=== PATIENT | male | born 2000 | race African-American/Black ===

== ENCOUNTER 2020-04-04 11:44 | Inpatient (IN) ==
[2020-04-04] MEDS: SODIUM CHLORIDE 0.9% 500 ML IV SCH ×5 (12:15→21:46)
[2020-04-04] MEDS ORDERED: ACETAMINOPHEN 65 ML IV ONE (12:18)
--- NOTE | 2020-04-04 12:31 | Emergency Department Note ---
Impression & Plan Hypotension, SOB (shortness of breath), Suicide attempt, Overdose, Cyanosis, Methemoglobinemia, Tachycardia ED Provider Note NAME: KYLE ROCA AGE: 19 SEX: M : 2000 ARRIVES VIA: Ambulance INFORMANT: [Patient] ED PROVIDER(S): [Matteo Talbert MD] CHIEF COMPLAINT: Intentional overdose HISTORY OF PRESENT ILLNESS: The patient is a 19-year-old male who presents to the ER by EMS after overdosing on sodium nitrate. Patient ingested this liquid about 1 hour ago. This was a suicide attempt. He had googled a way to kill himself online and had ordered this material online. The patient states the bottle had 115 g of powder. He thinks based on how he mixed things up that he drank around 10 to 12 g. He also took 2 Zofran tablets. The patient has a mild headache and some mild stomach upset. He has not vomited. He has no chest pain, he is not short of breath. He is thinking clearly. Patient states that he called his parents after this. He was saying goodbye to them. They convinced him to stop what he was doing and call the ambulance. The patient is upset about his grades. He states that he was a straight A student until things turned to online classes. Now he failed his classes and felt that the only way out was a suicide. Patient has been depressed lately because of his grades, he also feels alone and isolated because of the coronavirus pandemic. Patient is otherwise healthy, no heart or lung disease. He has no previous attempts at suicide. REVIEW OF SYSTEMS: See HPI for pertinent positives and negatives. A total of ten systems were reviewed and were otherwise negative. PMHx/PSHx: See Below SOCIAL HISTORY: See Below. PHYSICAL EXAM: GENERAL: Patient is in no acute distress. HEENT: No acute trauma, normocephalic atraumatic, mucous membranes dry, no nasal congestion, no scleral icterus. NECK: No stridor, no adenopathy, no meningismus, trachea is midline. LUNGS: Clear to auscultation bilaterally, no wheeze, no rhonchi, breath sounds equal. HEART: Mildly tachycardic, regular rhythm, no murmurs ABDOMEN: Soft, nontender, bowel sounds positive, no hernias, no peritonitis. EXTREMITIES: No cyanosis or edema, full range of motion of all the joints without pain or difficulty, no signs for acute trauma. NEUROLOGIC: Oriented x 3, no acute motor or sensory deficits, no focal weakness. SKIN: No rash, no jaundice, no diaphoresis. Psych: Cooperative, admits to an attempt at suicide. DIFFERENTIAL DIAGNOSIS: Overdose, toxicologic, infection, hypoglycemia, electrolyte abnormalities, cardiac sources, intracerebral event, neurologic, trauma, as well as other pathologies. EMERGENCY DEPARTMENT COURSE/PROCEDURES: ECG: Indication was overdose. The EKG shows a sinus tachycardia with a rate of 136. The QTc is 442. There is no ST elevation. No PVCs. Continuous Cardiac Monitoring: An order was placed for continuous cardiac monit oring. The monitor shows a rate of 115 with sinus tachycardia. Critical Care Note: I have personally spent greater than 62 minutes of critical care time in the direct management of this patient. This includes bedside care, interpretation of diagnostic studies, and testing, discussion with consultants, patient, and family members, and other required patient management activities. This 62 minutes is in excess of all separately billable procedures. MEDICAL DECISION MAKING: There is no leukocytosis or concerning anemia. ABG does not show any acidosis or hypoxia. Methemoglobin value was greater than 10%, elevated. No significant electrolyte abnormality or kidney failure. No concerning liver enzyme elevation. EKG showed a sinus tachycardia, no acute ischemia, no QT prolongation. Aspirin, Tylenol and alcohol levels were undetectable. Urine tox was negative. The patient presents after ingesting sodium nitrate. This was a suicide attempt. The patient was aggressively managed. Poison control was consulted. Patient presented mildly hypotensive and did demonstrate some orthostasis, he became pale and almost passed out when he stood to provide a urine sample. He received a total of 1 L of IV saline for hydration. During his ER stay, he became more tachycardic and appeared cyanotic. He complained of shortness of b reath. Patient received a dose of methylene blue IV as per the poison center's recommendations. This medication improved his tachycardia, his cyanosis disappeared and he felt better. Patient received a dose of IV Tylenol for pain control. The patient was in need of a hospital stay. The ICU attending was consulted and he did accept the patient. I spoke to case management, I talked to the patient about his findings, the on-call hospitalist was consulted. The patient will need to be seen by psychiatry but this can occur once he is medically clear, hopefully tomorrow. He is currently in serious but improved condition. Past Med/Surg History Medical History No significant past medical history Social History Preferred Language: Cypriot Communication Ability: Effective Beliefs That Will Affect Care: None Current Living Situation: Alone Feels Safe at Home: Yes Smoking Status: Never smoker Hx Substance Use: No Allergies Allergies Allergy/AdvReac Type Severity Reaction Status Date / Time No Known Allergies Allergy Unverified 04/04/20 13:06 Home Meds Home Medications Medication Instructions Recorded Confirmed No Known Home Medications 04/04/20 04/04/20 Results & Data (ED) Vital Signs Vital Signs - 24 hr 04/04/20 11:45 04/04/20 12:07 04/04/20 12:38 Temperature Source Oral Pulse Rate 116 H 136 H Pulse Rate [Left Finger] Respiratory Rate 20 Respiratory Effort / Characteristics Non-Labored Non-Labored Respiratory Depth Normal Normal Blood Pressure 90/41 L Blood Pressure [Left Arm] Blood Pressure Mean 57 Blood Pressure Mean [Left Arm] Pulse Oximetry 93 100 Oxygen Delivery Method Room Air Room Air Sepsis Recent Fever Within 48 Hours No Sepsis Action Taken by Nursing No Action Required 04/04/20 12:51 04/04/20 13:59 Temperature Source Pulse Rate Pulse Rate [Left Finger] 132 H 121 H Respiratory Rate 16 12 Respiratory Effort / Characteristics Non-Labored Respiratory Depth Normal Blood Pressure Blood Pressure [Left Arm] 106/63 107/87 Blood Pressure Mean Blood Pressure Mean [Left Arm] 77 93 Pulse Oximetry 100 100 Oxygen Delivery Method Room Air Sepsis Recent Fever Within 48 Hours Sepsis Action Taken by Skilled Nursing Medications Current Medication List: was personally reviewed by me Laboratory Data Attestation: I reviewed the patient's lab results. Result diagrams: 04/04/20 12:29 04/04/20 12:29 Lab Results 04/04/20 04/04/20 04/04/20 Range/Units 12:29 12:29 12:29 WBC (4.8-10.8) K/uL RBC (4.7-6.1) M/uL Hgb (14.0-18.0) g/dL Hct (42-52) % MCV (80-100) fL MCH (25-34) pg MCHC (32-36) g/dL Plt Count (130-400) K/uL Neutrophils % (Manual) % Lymphocytes % (Manual) % Monocytes % (Manual) % Basophils % (Manual) % Neutrophils # (Manual) (1.4-6.5) K/uL Total Absolute Neuts (1.4-6.5) K/uL Lymphocytes # (Manual) (1.2-3.4) K/uL Total Abs Lymphocytes (1.2-3.4) K/uL Monocytes # (Manual) (0.11-0.59) K/uL Basophils # (Manual) (0-0.2) K/uL ABG pH (7.35-7.45) ABG pCO2 (35-46) mmHg ABG pO2 (80-95) mmHg ABG HCO3 (19-24) mmol/L ABG O2 Saturation (90-95) % ABG Base Excess (-9-1.8) mEq/L Junior Test (Pos) Methemoglobin (0.0-1.5) % Barometric Pressure mm/Hg Oxygen Given Sodium 143 (136-145) mmol/L Potassium 3.4 L (3.5-5.1) mmol/L Chloride 111 H (98-107) mmol/L Carbon Dioxide 25 (21-32) mmol/L Anion Gap 7.0 (3-11) BUN 9 (7-18) mg/dl Creatinine 1.16 (0.6-1.4) mg/dl Est Cr Clr Drug Dosing Not Reportable Est GFR ( Amer) 104.5 Est GFR (Non-Af Amer) 90.2 BUN/Creatinine Ratio 7.5 L (10-20) Glucose 117 H (70-99) mg/dl Calcium 8.6 (8.5-10.1) mg/dl Magnesium 2.2 (1.8-2.4) mg/dl Total Bilirubin 0.8 (0.2-1) mg/dl AST 13 L (15-37) U/L ALT 15 (12-78) U/L Alkaline Phosphatase 69 (45-117) U/L Total Protein 6.9 (6.4-8.2) gm/dl Albumin 3.9 (3.4-5.0) gm/dl Globulin 3.0 (2.5-4.0) gm/dl Albumin/Globulin Ratio 1.3 (0.9-2) Salicylates < 1.7 L (2.8-20) mg/dl Acetaminophen < 2 L (10-30) ug/ml Ethyl Alcohol mg/dL < 3.0 (0-3) mg/dl 04/04/20 04/04/20 04/04/20 Range/Units 12:29 12:29 12:48 WBC 7.42 (4.8-10.8) K/uL RBC 4.77 (4.7-6.1) M/uL Hgb 14.6 (14.0-18.0) g/dL Hct 43.7 (42-52) % MCV 91.6 (80-100) fL MCH 30.6 (25-34) pg MCHC 33.4 (32-36) g/dL Plt Count 278 (130-400) K/uL Neutrophils % (Manual) 37.6 % Lymphocytes % (Manual) 46.8 % Monocytes % (Manual) 14.7 % Basophils % (Manual) 0.9 % Neutrophils # (Manual) 2.79 (1.4-6.5) K/uL Total Absolute Neuts 2.79 (1.4-6.5) K/uL Lymphocytes # (Manual) 3.47 H (1.2-3.4) K/uL Total Abs Lymphocytes 3.47 H (1.2-3.4) K/uL Monocytes # (Manual) 1.09 H (0.11-0.59) K/uL Basophils # (Manual) 0.07 (0-0.2) K/uL ABG pH 7.46 H (7.35-7.45) ABG pCO2 33 L (35-46) mmHg ABG pO2 132 H (80-95) mmHg ABG HCO3 23 (19-24) mmol/L ABG O2 Saturation 91.8 (90-95) % ABG Base Excess 0.1 (-9-1.8) mEq/L Junior Test Pos (Pos) Methemoglobin > 10.0 H (0.0-1.5) % Barometric Pressure 738.7 mm/Hg Oxygen Given Room Air Sodium (136-145) mmol/L Potassium (3.5-5.1) mmol/L Chloride (98-107) mmol/L Carbon Dioxide (21-32) mmol/L Anion Gap (3-11) BUN (7-18) mg/dl Creatinine (0.6-1.4) mg/dl Est Cr Clr Drug Dosing Est GFR ( Amer) Est GFR (Non-Af Amer) BUN/Creatinine Ratio (10-20) Glucose (70-99) mg/dl Calcium (8.5-10.1) mg/dl Magnesium (1.8-2.4) mg/dl Total Bilirubin (0.2-1) mg/dl AST (15-37) U/L ALT (12-78) U/L Alkaline Phosphatase (45-117) U/L Total Protein (6.4-8.2) gm/dl Albumin (3.4-5.0) gm/dl Globulin (2.5-4.0) gm/dl Albumin/Globulin Ratio (0.9-2) Salicylates (2.8-20) mg/dl Acetaminophen (10-30) ug/ml Ethyl Alcohol mg/dL (0-3) mg/dl Administered Medications Discontinued Medications Sodium Chloride (Nss) 500 mls @ 999 mls/hr IV .Q31M LINDSAY Stop: 04/14/20 22:30 Last Admin: 04/04/20 16:21 Dose: Not Given Documented by: [id number] Admin: 04/04/20 16:17 Dose: Not Given Documented by: [id number] Infusion: 04/04/20 12:45 Dose: 0 mls/hr Documented by: [id number] Admin: 04/04/20 12:15 Dose: 999 mls/hr Documented by: [id number] Acetaminophen ([facility]) 65 mls @ 200 mls/hr IV NOW ONE; Protocol Stop: 04/04/20 12:37 Last Infusion: 04/04/20 13:15 Dose: 0 mls/hr Documented by: [id number] Admin: 04/04/20 12:57 Dose: 200 mls/hr Documented by: [id number] Methylene Blue 8.4 ml/ (Dextrose) 58.4 mls @ 233.6 mls/hr IV NOW STA Stop: 04/04/20 14:00 Last Infusion: 04/04/20 14:21 Dose: 0 mls/hr Documented by: [id number] Admin: 04/04/20 13:59 Dose: 233.6 mls/hr Documented by: [id number] Sodium Chloride (Nss 1000ml) 500 mls @ 999 mls/hr IV .Q31M ONE Stop: 04/04/20 14:14 Last Infusion: 04/04/20 15:46 Dose: 0 mls/hr Documented by: [id number] Admin: 04/04/20 14:19 Dose: 999 mls/hr Documented by: [id number] Potassium Chloride (K Antonio / Wtr) 10 meq in 100 mls @ 100 mls/hr IV ONE ONE Stop: 04/04/20 16:09 Last Admin: 04/04/20 16:28 Dose: 100 mls/hr Documented by: [id number] Lactated Ringer's (Lr) 1,000 mls @ 999 mls/hr IV .Q1H1M ONE Stop: 04/04/20 17:21 Last Infusion: 04/04/20 16:34 Dose: 0 mls/hr Documented by: [id number] Admin: 04/04/20 16:28 Dose: 999 mls/hr Documented by: [id number] Blood Pressure Blood Pressure Findings: Low blood pressure Blood Pressure Disposition: further management by hospitalist Discharge Plan Visit Data *Final* Discharge Date/Time: 04/04/20 14:30 Chief Complaint: Overdose (Intentional) ED Provider: Matteo Talbert Discharge Problem: Hypotension, SOB (shortness of breath), Suicide attempt, Overdose, Cyanosis, Methemoglobinemia, Tachycardia Patient Disposition: Admitted As Inpatient Condition: Serious Discharge Instructions Interventions: ED Discharge Assessment Last Done: 04/04/20 14:30 Discharge Problem: Hypotension Qualifiers: Hypotension type: unspecified hypotension type Qualified Code(s): I95.9 - Hypotension, unspecified Overdose Qualifiers: Encounter type: initial encounter Injury intent: intentional self-harm Qualified Code(s): T50.902A - Poisoning by unspecified drugs, medicaments and biological substances, intentional self-harm, initial encounter
[2020-04-04 13:06] LABS: Alanine Aminotransferase 15 U/L (12-78); Albumin Level 3.9 gm/dl (3.4-5.0); Aspartate Aminotransferase 13 U/L (15-37); BUN Creatinine Ratio 7.5 (10-20); Blood Urea Nitrogen 9 mg/dl (7-18); Calcium 8.6 mg/dl (8.5-10.1); Carbon Dioxide 25 mmol/L (21-32); Chloride 111 mmol/L (98-107); Est GFR (African American) 104.5; Est GFR (Non-African American) 90.2; Glucose 117 mg/dl (70-99); Magnesium 2.2 mg/dl (1.8-2.4); Potassium 3.4 mmol/L (3.5-5.1); Sodium 143 mmol/L (136-145)
[2020-04-04 13:08] LABS: Allen Test Pos (Pos); Base Excess ABG 0.1 mEq/L (-9-1.8); HCO3 ABG 23 mmol/L (19-24); Oxygen Saturation ABG 91.8 % (90-95); PCO2 ABG 33 mmHg (35-46); PO2 ABG 132 mmHg (80-95); pH ABG 7.46 (7.35-7.45)
[2020-04-04 13:09] LABS: Albumin Globulin Ratio 1.3 (0.9-2); Alkaline Phosphatase 69 U/L (45-117); Bilirubin,Total 0.8 mg/dl (0.2-1); Total Protein 6.9 gm/dl (6.4-8.2)
[2020-04-04 13:16] LABS: Acetaminophen < 2 ug/ml (10-30); Salicylate < 1.7 mg/dl (2.8-20)
[2020-04-04 13:30] LABS: Amphetamines+Metham, Urine Neg (Neg); Barbiturates, Urine Neg (Neg); Benzodiazepine, Urine Neg (Neg); Cocaine, Urine Neg (Neg); MDMA (Ecstacy), Urine Neg (Neg); Methadone, Urine Neg (Neg); Opiate, Urine Neg (Neg); Phencyclidine, Urine Neg (Neg)
[2020-04-04] MEDS ORDERED: SODIUM CHLORIDE 0.9% 1000ML 500 ML IV ONE (13:44)
[2020-04-04 13:45] LABS: Hematocrit (blood only) 43.7 % (42-52); Hemoglobin 14.6 g/dL (14.0-18.0); Mean Corpuscular Hemoglobin 30.6 pg (25-34); Mean Corpuscular Hgb Conc 33.4 g/dL (32-36); Mean Corpuscular Volume 91.6 fL (80-100); Platelet Count 278 K/uL (130-400); Red Blood Count 4.77 M/uL (4.7-6.1); White Blood Count 7.42 K/uL (4.8-10.8)
[2020-04-04 13:46] LABS: ALC (manual) 3.47 K/uL (1.2-3.4); ANC (manual) 2.79 K/uL (1.4-6.5); Basophils # (manual) 0.07 K/uL (0-0.2); Basophils % (manual) 0.9 %; Lymphocytes # (manual) 3.47 K/uL (1.2-3.4); Lymphocytes % (manual) 46.8 %; Monocytes # (manual) 1.09 K/uL (0.11-0.59); Monocytes % (manual) 14.7 %; Neutrophils # (manual) 2.79 K/uL (1.4-6.5); Neutrophils % (manual) 37.6 %
[2020-04-04] MEDS ORDERED: METHYLENE BLUE IV STA (13:46)
[2020-04-04] MEDS ORDERED: DEXTROSE 5% IV STA (13:46)
--- NOTE | 2020-04-04 14:39 | History & Physical Report ---
Date of Service April 04, 2020 Assessment & Plan (1) Suicide attempt: Admit ICU ED physician discussed patient's case with ICU physician Dose of methylene blue given in ED per poison control recommendation - can have another dose in 1 hour if he needs it but at present he is responding well to treatment Continue Fluids Patient care per editor newspaper (2) Hypokalemia: Will replace with 10 mEq IV potassium History of Present Illness Mr. Harmon presents today with intentional overdose of sodium nitrate. He ingested this liquid about 1 hour [employer] in an intentional suicide attempt. Per ED physician, he googled a way to kill himself online and had ordered this material online. The patient states the bottle had 115 g of powder. He thinks based on how he mixed things up that he drank around 10 to 12 g. He also took 2 Zofran tablets. He called his parents in [facility] and they convinced him to come to the ED. He reports headache and stomach upset with epigastric discomfort. He denies aches, chills, sob, chest pain, n/v/d, dysuria or hesitancy or musculoskeletal pain. He reports he failed all of his classes and that is what caused him to attempt to kill himself but he now regrets it and wants to live. Per the ED physician, patient was becoming acutely cyanotic. He was given methylene blue as instructed by poison control with rapid improvement. At the time of my assessment his was mildly tachycardic and otherwise vital signs were stable. No significant medical history No significant family medical history Lives alone, never smoker, no alcohol, no elicit substances, student Primary Care Provider: NO PCP Allergies Allergy/AdvReac Type Severity Reaction Status Date / Time No Known Allergies Allergy Unverified 04/04/20 13:06 Home Medications Home Medications Medication Instructions Recorded Confirmed Type No Known Home Medications 04/04/20 04/04/20 History Past Med/Surg History Social History Feels Safe at Home: Yes Smoking Status: Never smoker Physical Exam Physical Exam: General: no distress Eyes: normal inspection, PERLL Respiratory: chest non tender, clear to auscultation, normal breath sounds, no respiratory distress, no accessory muscle use Cardiac: regular rate and rhythm, no rub or gallop, no murmur, no edema, no jvd GI/: active bowel sounds, no abd pain or tenderness, soft, non distended Extremities: normal range of motion, normal strength, non tender Neuro/Psych: alert and oriented x 3, normal mood and affect Skin: normal color, dry Results & Data Results & Data ([facility]) Vital Signs (Past 12 Hours) Vital Signs Pulse Pulse Resp BP BP Pulse Ox 04/04/20 14:30 110 H 16 101/56 L 100 04/04/20 14:20 100 04/04/20 14:19 107 H 16 93/49 L 100 04/04/20 13:59 121 H 12 107/87 100 04/04/20 12:51 132 H 16 106/63 100 04/04/20 12:38 136 H 100 04/04/20 11:45 116 H 20 90/41 L 93 Code Status & VTE Plan Code Status full VTE Prophylaxis Plan VTE Prophylaxis will be ordered: Yes Supervising Physician Co-Signing Physician Notes I supervised Hilda Hart NP on this patient's care. I examined the patient today independently of her. I discussed the plan of care with her with the plan being as written in her note except for any following changes/exceptions: None. Presently in less distress after receiving methylene blue. Will monitor closely in the ICU and give additional dose if needed. PG Care Time/CCT Total # of Minutes Spent Total Time Spent with Patient: Total time spent is greater than 50% in coordination of care (as documented) at patient's floor/unit and/or counseling patient: Coding Level of Care Code 81788 Initial Inpt Care Lvl 2 Diagnoses Suicide attempt T14.91XA Hypokalemia E87.6
[2020-04-04] MEDS ORDERED: POTASSIUM CHLORIDE / WTR 10 MEQ/100 ML PLCT IV ONE (15:10)
[2020-04-04] MEDS ORDERED: ICU PROTOCOL FOR HYPERGLYCEMIA PRN (15:10)
--- NOTE | 2020-04-04 16:00 | Critical Care Consultation ---
Date of Consultation April 04, 2020 Assessment & Plan (1) Methemoglobinemia: Chest x-ray personally reviewed: No infiltrate, costophrenic cardiophrenic angles are clean bilaterally. --Hemoglobinemia with suicide attempt The methemoglobin level was greater than 10% on ABG Patient was given methylene blue 1 dose in the ED at 2 PM Toxicology was consulted. Recommendation is to repeat ABG to look at the level at 8 PM which is 6 hours post initial ABG and if it is still elevated then give a repeat dose of methylene blue Give bolus 1 L of LR. Follow-up toxicology recommendations UDS is negative, salicylate negative, Tylenol negative, alcohol negative Follow-up serum osmolality and urine osmolality. --Hypokalemia Being replaced --Suicidal ideation Continue with 1 is to 1 Psychiatric evaluation Diet: Regular DVT: IPC's I have personally spent 48 minutes of critical care time in the direct management of this patient. This is a life/limb threatening event. This includes time spent evaluating patient, direct bedside care, chart review, placing orders, interpretation of diagnostic studies, discussion with consultants, patient, and family members, as well as other required patient management activities. This time is exclusive of all separately billable procedures, and teaching time and separate from and in addition to any other critical care service time. Please note the above document was generated using voice recognition software. It may contain grammatical, syntax or spelling errors. (2) Suicide attempt: (3) Suicide attempt: History of Present Illness Attending Physician: Flash Mahajan MD History of Present Illness 19-year-old [place]ian male with no significant past medical history presented to the ER with intentional overdose of sodium nitrate. Patient took approximately 10-12 g along with 2 Zofran tablets. He was feeling depressed as he was not getting good grades this term, previously patient used to get 8 years allowed. He was also feeling lonely because of the friend admixed and he has to stay home all the time and all his friends were at their respective places. In the ER patient saturation was good but his ABG showed methhemoglobin level greater than 10%. Patient was tachycardic and mildly hypotensive which respon ded to fluid At the time of examination in the ICU patient denied any complaints. Denies any nausea or vomiting. Denied any dizziness, no chest pain, no blurry vision. Denied any abdominal pain. No dysuria, no diarrhea. Patient denies any suicidal ideation right now. No fever or chills. Patient denies any fight with anybody. He is feeling sorry to have taken the staff. Social history: Denies any illicit drug use, no alcohol use, non-smoker. Is a student studying [employer]. Allergies Allergy/AdvReac Type Severity Reaction Status Date / Time No Known Allergies Allergy Unverified 04/04/20 13:06 Home Medications Home Medications Medication Instructions Recorded Confirmed Type No Known Home Medications 04/04/20 04/04/20 History Patient History Social History Preferred Language: Uzbek Communication Ability: Effective Beliefs That Will Affect Care: None Current Living Situation: Alone Feels Safe at Home: Yes Smoking Status: Never smoker Hx Substance Use: No Review of Systems Review of Systems: All systems reviewed & are unremarkable except as noted in HPI & below Physical Exam Physical Exam: Constitutional: No acute distress, thin appearing HEENT: EOMI, PERRLA, dry mucosa Respiratory system: Good air entry bilaterally, no wheeze, no rhonchi, no crackles CVS: S1-S2 positive, no murmurs or gallops, tachycardia Abdomen: Soft, nontender, nondistended, positive bowel sounds x4 Extremities: +2 pulses bilaterally radialis/ dorsalis pedis, no cyanosis, no edema Neuro: Awake alert oriented x3 Psych: Normal mood and affect G/U: No Gomez Skin: no rashes, warm and dry Lymphatic: no cervical or axillary lymphadenopathy Results & Data Results & Data ([facility]) Vital Signs (Past 12 Hours) Vital Signs Pulse Pulse Resp BP BP Pulse Ox 04/04/20 14:30 110 H 16 101/56 L 100 04/04/20 14:20 100 04/04/20 14:19 107 H 16 93/49 L 100 04/04/20 13:59 121 H 12 107/87 100 04/04/20 12:51 132 H 16 106/63 100 04/04/20 12:38 136 H 100 04/04/20 11:45 116 H 20 90/41 L 93 04/04/20 12:29 04/04/20 12:29 Coding Level of Care Code New Pt Critical Care 1st 30-74 mins Patient Type New Diagnoses Methemoglobinemia D74.9 Suicide attempt T14.91XA Suicide attempt T14.91XA Time Spent (min) 48
[2020-04-04] MEDS ORDERED: LACTATED RINGER'S 1,000 ML IV ONE (16:21)
--- NOTE | 2020-04-04 16:23 | XRay Report ---
XR chest 1V portable CLINICAL HISTORY: Shortness of breath. COMPARISON STUDY: No previous studies for comparison. FINDINGS: Lung volumes are normal. Lungs are clear. There is no pneumothorax or pleural effusion. Car diac size is normal. Mediastinal contours are normal. There is no evidence for pulmonary edema. Patie nt is mildly rotated. IMPRESSION: No acute cardiopulmonary findings. ACT 112: Negative or not required by law. Electronically signed by: Osmani Lopez M.D. 04/04/2020 4:22 PM
[2020-04-04] MEDS ORDERED: POTASSIUM CHLORIDE PWD 20 MEQ PACK PO ONE (19:45)
[2020-04-04 20:36] LABS: Base Excess ABG 0.2 mEq/L (-9-1.8); HCO3 ABG 24 mmol/L (19-24); Oxygen Saturation ABG 97.6 % (90-95); PCO2 ABG 35 mmHg (35-46); PO2 ABG 99 mmHg (80-95); pH ABG 7.45 (7.35-7.45)
[2020-04-04 20:51] LABS: Allen Test POS (Pos)
[2020-04-04] MEDS: SODIUM CHLORIDE 0.9% 1000ML 1,000 ML IV SCH (23:39)
[2020-04-05 02:47] LABS: HCO3 ABG 24 mmol/L (19-24); PCO2 ABG 37 mmHg (35-46); PO2 ABG 139 mmHg (80-95); pH ABG 7.43 (7.35-7.45)
[2020-04-05 02:48] LABS: Allen Test POS (Pos)
[2020-04-05 04:35] LABS: Basophils # (auto) 0.01 K/uL (0-0.2); Basophils % (auto) 0.1 %; Eosinophils # (auto) 0.01 K/uL (0-0.5); Eosinophils % (auto) 0.1 %; Hematocrit (blood only) 42.2 % (42-52); Hemoglobin 14.3 g/dL (14.0-18.0); Immature Granulocytes # (auto) 0.01 K/uL (0.00-0.02); Immature Granulocytes % (auto) 0.1 %; Lymphocytes # (auto) 2.19 K/uL (1.2-3.4); Lymphocytes % (auto) 24.1 %; Mean Corpuscular Hemoglobin 30.7 pg (25-34); Mean Corpuscular Hgb Conc 33.9 g/dL (32-36); Mean Corpuscular Volume 90.6 fL (80-100); Mean Platelet Volume 10.3 fL (7.4-10.4); Monocytes # (auto) 0.51 K/uL (0.11-0.59); Monocytes % (auto) 5.6 %; Neutrophils # (auto) 6.34 K/uL (1.4-6.5); Platelet Count 251 K/uL (130-400); RDW Coefficient of Variation 13.7 % (11.5-14.5); RDW Standard Deviation 45.5 fL (36.4-46.3); Red Blood Count 4.66 M/uL (4.7-6.1); White Blood Count 9.07 K/uL (4.8-10.8)
[2020-04-05] MEDS ORDERED: ACETAMINOPHEN 325 MG TAB PO PRN (04:45)
[2020-04-05 05:19] LABS: Albumin Level 3.9 gm/dl (3.4-5.0); BUN Creatinine Ratio 5.2 (10-20); Bilirubin Direct 0.2 mg/dl (0-0.2); Bilirubin,Total 0.8 mg/dl (0.2-1); Blood Urea Nitrogen 4 mg/dl (7-18); Calcium 8.3 mg/dl (8.5-10.1); Carbon Dioxide 25 mmol/L (21-32); Chloride 109 mmol/L (98-107); Est GFR (African American) > 150.0; Est GFR (Non-African American) 134.3; Glucose 94 mg/dl (70-99); Sodium 142 mmol/L (136-145)
[2020-04-05] MEDS: SODIUM CHLORIDE 0.9% 1000ML 1,000 ML IV SCH (06:09)
--- NOTE | 2020-04-05 06:11 | Electrocardiogram Report ---
Test Reason : Blood Pressure : / mmHG Vent. Rate : 136 BPM Atrial Rate : 136 BPM P-R Int : 126 ms QRS Dur : 076 ms QT Int : 294 ms P-R-T Axes : 075 095 070 degrees QTc Int : 442 ms Sinus tachycardia Possible Left atrial enlargement Incomplete right bundle branch block Rightward axis Borderline ECG No previous ECGs available Confirmed by John Back [id number] on 04/05/2020 6:10:35 AM Referred By: REFERRED SELF Confirmed By:John Back
--- NOTE | 2020-04-05 08:05 | Critical Care Progress Note ---
Date of Service April 05, 2020 Assessment & Plan (1) Methemoglobinemia: Chest x-ray personally reviewed: No infiltrate, costophrenic cardiophrenic angles are clean bilaterally. --Methemoglobinemia with suicide attempt The methemoglobin level was greater than 10% on ABG S/p 1 dose of methylene blue yesterday at 2 PM in the ED. Patient did not require a repeat dose of methylene blue. His methemoglobin level was trending down. Today it travel was 0.3% Lactic acidosis improved. UDS is negative, salicylate negative, Tylenol negative, alcohol negative No osmolar gap. --Suicidal ideation Continue with 1 is to 1 Psychiatric evaluation Diet: Regular DVT: IPC's Patient is hemodynamically stable to be sent to a [facility] tele[facility]. I have personally spent 35 minutes of critical care time in the direct management of this patient. This is a life/limb threatening event. This includes time spent evaluating patient, direct bedside care, chart review, placing orders, interpretation of diagnostic studies, discussion with consultants, patient, and family members, as well as other required patient management activities. This time is exclusive of all separately billable procedures, and teaching time and separate from and in addition to any other critical care service time. Please note the above document was generated using voice recognition software. It may contain grammatical, syntax or spelling errors. (2) Suicide attempt: Admission and Anticipated Discharge Date Admission Date: April 04, 2020 Subjective Patient seen and examined at bedside. No acute distress, no adverse events overnight. Denies any chest pain, no shortness of breath, no headache, no nausea, no vomiting. No suicidal ideation. Repeat ABG showed methemoglobin level less than 0.3% in the morning today. Patient tolerating diet. Review of Systems Review of Systems: All systems reviewed & are unremarkable except as noted in HPI & below Physical Exam Physical Exam: Constitutional: No acute distress, thin appearing HEENT: EOMI, PERRLA Respiratory system: Good air entry bilaterally, no wheeze, no rhonchi, no crackles CVS: S1-S2 positive, no murmurs or gallops, tachycardia Abdomen: Soft, nontender, nondistended, positive bowel sounds x4 Extremities: +2 pulses bilaterally radialis/ dorsalis pedis, no cyanosis, no edema Neuro: Awake alert oriented x3 Psych: Normal mood and affect G/U: No Gomez Skin: no rashes, warm and dry Lymphatic: no cervical or axillary lymphadenopathy Results & Data Results & Data ([facility]) Vital Signs (Past 12 Hours) Vital Signs Temp Pulse Pulse Resp BP BP Pulse Ox 04/05/20 07:00 87 17 117/67 100 04/05/20 06:56 81 15 117/67 100 04/05/20 06:00 75 14 100 04/05/20 05:42 79 13 04/05/20 05:41 79 15 122/66 100 04/05/20 05:30 89 15 100 04/05/20 05:00 85 17 100 04/05/20 04:41 92 H 15 115/68 100 04/05/20 04:30 81 17 04/05/20 04:22 36.9 C 04/05/20 04:00 87 14 100 04/05/20 03:41 87 21 123/75 100 04/05/20 03:30 109 H 19 04/05/20 03:00 99 H 15 04/05/20 02:41 94 H 10 L 123/77 100 04/05/20 02:30 104 H 18 100 04/05/20 02:00 93 H 15 04/05/20 01:42 105 H 15 119/75 04/05/20 01:30 99 H 13 100 04/05/20 01:00 114 H 13 100 04/05/20 00:41 91 H 15 119/75 100 04/05/20 00:30 109 H 18 100 04/05/20 00:00 36.9 C 96 H 16 100 04/04/20 23:41 119 H 15 115/79 100 04/04/20 23:30 81 16 100 04/04/20 23:00 127 H 17 100 04/05/20 04:21 04/05/20 04:21 Coding Level of Care Code Critical Care 1st 30-74 mins Diagnoses Methemoglobinemia D74.9 Suicide attempt T14.91XA Time Spent (min) 35
--- NOTE | 2020-04-05 10:09 | Hospitalist Progress Note ---
Date of Service April 05, 2020 Assessment & Plan (1) Suicide attempt: Consulted psychiatry, patient will need inpatient psychiatric care when medically cleared 1:1 in the room (2) Methemoglobinemia: Methemoglobin greater than 10% on ABG in ED, given methylene blue per poison control recommendations with rapid relief of cyanosis and improvement of symptoms Provide IVF with LR Urine tox was negative Consulted [facility], patient remains in the ICU (3) Hypokalemia: Replaced and resolved (4) Tachycardia: Intermittent, asymptomatic (5) DVT prophylaxis: SCDs Dispo: defer to [facility] on when patient is ready to leave ICU. Admission and Anticipated Discharge Date Admission Date: April 04, 2020 Subjective Mr. Harmon is feeling better today. He feels mostly back to his normal self. As I was standing and talking to him however he became tachycardic in the 140s which then trended back down. He denies any symptoms, reports he just feels fatiged. ROS Constitutional: no chills, aches, sweats or fever Respiratory: no sob,cough, sputum, or wheezing Cardiac: no chest pain, palpitations, edema, orthopnea or lightheadedness GI: no abdominal pain, nausea, vomiting, diarrhea or constipation : no dysuria or hesitancy Extremities: no joint pain or weakness Skin: no rash All other systems reviewed and negative Physical Exam Physical Exam: General: no distress Eyes: normal inspection, PERLL Respiratory: chest non tender, clear to auscultation, normal breath sounds, no respiratory distress, no accessory muscle use Cardiac: regular rate and rhythm, no rub or gallop, no murmur, no edema, no jvd GI/: active bowel sounds, no abd pain or tenderness, soft, non distended Extremities: normal range of motion, normal strength, non tender Neuro/Psych: alert and oriented x 3, flat affect Skin: normal color, dry Results & Data Results & Data ([facility]) Vital Signs (Past 12 Hours) Vital Signs Temp Pulse Pulse Resp BP BP Pulse Ox 04/05/20 08:00 84 04/05/20 07:00 87 17 117/67 100 04/05/20 06:56 81 15 117/67 100 04/05/20 06:00 75 14 100 04/05/20 05:42 79 13 100 04/05/20 05:41 79 15 122/66 100 04/05/20 05:30 89 15 100 04/05/20 05:00 85 17 100 04/05/20 04:41 92 H 15 115/68 100 04/05/20 04:30 81 17 100 04/05/20 04:22 36.9 C 04/05/20 04:00 87 14 100 04/05/20 03:41 87 21 123/75 04/05/20 03:30 109 H 19 04/05/20 03:00 99 H 15 100 04/05/20 02:41 94 H 10 L 123/77 04/05/20 02:30 104 H 18 100 04/05/20 02:00 93 H 15 100 04/05/20 01:42 105 H 15 119/75 04/05/20 01:30 99 H 13 100 04/05/20 01:00 114 H 13 100 04/05/20 00:41 91 H 15 119/75 100 04/05/20 00:30 109 H 18 100 04/05/20 00:00 36.9 C 96 H 16 100 04/04/20 23:41 119 H 15 115/79 100 04/04/20 23:30 81 16 100 04/04/20 23:00 127 H 17 100 PG Care Time/CCT Total # of Minutes Spent Total Time Spent with Patient: Total time spent is greater than 50% in coordination of care (as documented) at patient's floor/unit and/or counseling patient: Coding Level of Care Code 04795 Subseq Hosp Care Lvl 2 Diagnoses Suicide attempt T14.91XA Methemoglobinemia D74.9 Hypokalemia E87.6 Tachycardia R00.0 DVT prophylaxis Z29.9
--- NOTE | 2020-04-05 10:30 | Psychiatric Consultation ---
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 This occurred in the context of struggling over the past 2 semesters due to significant isolation and all of his courses moving to online coursework, with poor academic performance, and finding out last week he failed 3 of his classes. He had a premeditated, researched suicide plan that took several days to implement, and took a lethal dose of sodium nitrate after researching how to kill himself. He called an ambulance after contacting his parents in [place] to say goodbye, and now reports regretting his suicide attempt. He is anxious to be discharged from the hospital, but none of his risk factors have been mitigated, and he remains at risk for suicide if discharged without psychiatric treatment. I have reviewed my recommendations for inpatient psychiatric treatment when he is medically cleared, including the difference between a voluntary and involuntary hospitalization. The liaison nurse will visit with him today and take a brochure about our unit, and hopefully with more information and support, he will agreed to voluntary hospitalization. If he does not, he clearly meets criteria for involuntary commitment, and is currently on a 302 warrant. Please notify us when he is medically cleared (stable vital signs, eating and drinking well, ambulating and voiding independently). Thank you for the consult, please contact us with any further questions. Risk Factors Assessment Male: Yes : No Do You Have Access To A Gun?: No Health Problems: No Mental Health Diagnoses: No Substance Use Disorders: No Previous Attempt: No Previous Attempt; Highly Lethal: Yes Previous Attempt; Planned: Yes Family History of Suicide: No Previous Psychiatric Hospitalization: No Hopelessness: Yes Smoker: No Protective Factors Assessment Mu-Ism Beliefs: No : No Responsible for Young Children: No Employed: No Stable Relationships: Yes (Has friends, but no supports in the area currently.) Supportive Family: Yes Good Rapport with Provider: No Psych History Identifying Data 19-year-old male admitted to the ICU after a suicide attempt by sodium nitrate ingestion. Psychiatry is consulted for suicide attempt. Chief Complaint "So I'm feeling pretty good". History of Present Illness Patient presented to the ER yesterday after a suicide attempt by overdose on sodium nitrate. Police completed a warrant which reads "male called 911 after taking approximately 10 to 15 g /oz of sodium nitrate and Zofran 8 mg x 2 tablets. On scene male advised he had just failed 3 classes and took the sodium nitrate and Zofran in an attempt to kill himself." He denied a history of mental illness, but stated he had been depressed lately because he failed all of his classes, and felt suicide was the only way out. He researched how to kill himself and ordered sodium nitrate online. He stated a bottle he bought contained 115 g of powder, and estimated that he ingested 10 to 12 g about 1 hour prior to presentation. He also took 2 tabs of Zofran. He then called his parents in [place] to say goodbye to them, who convinced him to come to call an ambulance. He endorsed GI upset and headache, and was tachycardic in the ER. EKG showed QTC 442. ABG showed methemoglobin >10. Toxicology screen was negative, CMP notable for slightly low potassium 3.4, CBC was unremarkable. He was admitted to the ICU and received methylene blue, IV fluids and potassium repletion. The psychiatric liaison nurse met with him last evening, and he reported that he tried to end his life, had been feeling alone and isolated because of the COVID pandemic, and was upset when his grades came out 3 days ago, as he failed all of his classes. He says he was in a student prior to classes moving to online because of the pandemic. Many of his friends have returned to [place]. He stated that he had "learned his lesson" and no longer felt suicidal. He did endorse decreased interest over the past 2 months, which he attributed to the lockdown because of the pandemic. He endorsed low energy and poor concentration, but denied changes in appetite and sleep. On my assessment, he was seen in his ICU room where he is seated in bed. Inter view put on hold for several minutes while he took a call from his mother in [facility]. He states he has never struggled with mood or anxiety symptoms prior to the past couple of months, but has been struggling with isolation and poor academic performance over the past 2 months since the COVID pandemic lead to [employer] moving all classes online. 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 Over the past 2 months, he has become extremely socially isolated, as most of his friends left campus and returned home, and he remained here. He lives alone, and says the only people he has been talking to are his parents, 1- 2 times a week by phone. He has no local supports. He says he struggled to keep up with his course work with the online classes, fell behind, missed some deadlines, and was generating poor quality work. Last week, he got his grades for the semester, and failed 3 of his classes. He was very disappointed, and felt hopeless. He states he was told he could drop the classes, but then his parents would have to pay tuition for an additional semester, and they cannot afford it. He felt that suicide was the only option available to him, so researched ways to kill himself online, and purchased sodium nitrate online several days ago. He waited for it to be delivered, and then mixed up an amount that according to his research would be more than a lethal dose, and ingested it yesterday with intent to . He says he read that 10 g was a lethal dose, so he took 15 to 20 g. He then called his parents in [facility] to say hipolitodoc, and during that conversation regretted his actions, became fearful of dying, so called an ambulance and came to the hospital. He states it was a very scary experience, as he was having difficulty breathing, and that he has now "learned my lesson," and regrets the suicide attempt. He repeatedly states that he feels better now, and does not think that he needs inpatient treatment, "I learned my lesson, this is all over." He plans to stay at his apartment in [place], but is considering returning to 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 Although he says he has no supports locally, he does have some friends in [place]. Discussed my recommendation for inpatient psychiatric treatment once he is medically stable, including reasons for those recommendations (severity of suicide attempt, lack of medication of any of his risk factors, need to demonstrate a period of stability prior to discharge and to involve his supports in discharge and safety planning), goals of treatment, what to expect on the inpatient psych unit, what types of treatment are offered there, and where treatment would occur here if a bed is available). Also discussed the option to coordinate with the University and get more information about options for him moving forward. Reviewed in detail the difference between a voluntary and involuntary commitment, and answered multiple questions. He was very concerned that if he was hospitalized psychiatrically he would be "interrogated" by the police, or criminally charged in some way, and assured him this was not the case. Also answered multiple questions about what it would mean to be "labeled" with a mental illness, people's ability to access his healthcare records, and that even if he is involuntarily committed, that this is not on his "record" and is not a criminal issue. At the conclusion of this discussion, he remained unwilling for inpatient treatment, but did agree to consider it further, and was advised that we are available if questions arise. Past Psychiatric History Previous Psych History: Denies Outpatient Services: None Previous Psych Admissions: Denies Do You Have Access To A Gun?: No History of Previous Suicide Attempt: No Past Medication Trials: Denies Allergies Allergy/AdvReac Type Severity Reaction Status Date / Time No Known Allergies Allergy Unverified 04/04/20 13:06 Home Medications Home Medications Medication Instructions Recorded Confirmed Type No Known Home Medications 04/04/20 04/04/20 History Family History Brother with autism. No family history of suicide. Substance Abuse History Denies using recreational drugs, alcohol, and tobacco products. Personal History Living Arrangements Comments: From [facility], currently living in [place] to attend [employer] Highest Grade Completed: Some College Highest Grade Completed Comment: [employer] at [employer] majoring in engineering Employment Status: Student Marital Status: Single Beliefs That Will Affect Care: None History of Legal Problems: Denies Psychological Trauma History Comment: Denies a history of abuse Patient History Medical History No significant past medical history Social History Preferred Language: Korean Communication Ability: Effective Beliefs That Will Affect Care: None Current Living Situation: Alone Feels Safe at Home: Yes Smoking Status: Never smoker Hx Substance Use: No Physical Exam Psychiatric: Orientation: alert and cooperative Apperance: appeared stated age Thin [place] male, dressed in paper scrubs, seated in bed in [facility]. Hair is shaved short, with longer wispy pieces around his ear; mustache and goattee. Wearing glasses that are visibly smudged. Eye Contact: + fair eye contact Motor Behavior: no abnormal motor movements Speech: normal rate/rhythm/volume of speech Affect: + anxious affect and + constricted affect; + mood not co ngruent with affect "I feel good now." Thought Process: + perseveration (on wanting to leave, "I'm fine now.") Thought Content: + cognitive distortions (minimizing suicide attempt) Suicidal Thoughts: denies suicidal thoughts But admits to premeditated, researched suicide attempt yesterday Homicidal Thoughts: denies homicidal thoughts Hallucinations: no auditory hallucinations and no visual hallucinations Cognition: recent memory grossly intact, attention grossly intact and language grossly intact Estimated Intelligence: consistent with education level Insight: + impaired insight Judgement: + impaired judgement Vital Signs (Past 24 Hours): Last Vital Signs Temp 36.9 C 04/05/20 04:22 Pulse 84 04/05/20 08:00 Resp 17 04/05/20 07:00 BP 117/67 04/05/20 07:00 Pulse Ox 100 04/05/20 07:00 Review of Systems All systems reviewed & are unremarkable except as noted in HPI & below Tachycardic Results & Data (PSY) Medications Administered Acetaminophen (Tylenol) 325 mg PO Q4H PRN PRN Reason: Pain Stop: 05/05/20 04:44 Last Admin: 04/05/20 05:12 Dose: 325 mg Documented by: [id number] Coding Level of Care Code 42798 [facility] Intl Hosp Care Lvl 3 Diagnoses Suicide attempt T14.91XA
[2020-04-06 08:30] LABS: Basophils # (auto) 0.02 K/uL (0-0.2); Basophils % (auto) 0.2 %; Eosinophils # (auto) 0.14 K/uL (0-0.5); Eosinophils % (auto) 1.6 %; Hematocrit (blood only) 49.1 % (42-52); Hemoglobin 16.7 g/dL (14.0-18.0); Immature Granulocytes # (auto) 0.02 K/uL (0.00-0.02); Immature Granulocytes % (auto) 0.2 %; Lymphocytes # (auto) 3.43 K/uL (1.2-3.4); Lymphocytes % (auto) 38.6 %; Mean Corpuscular Volume 91.1 fL (80-100); Mean Platelet Volume 10.6 fL (7.4-10.4); Neutrophils # (auto) 4.47 K/uL (1.4-6.5); Neutrophils % (auto) 50.4 %; Platelet Count 269 K/uL (130-400); RDW Coefficient of Variation 13.9 % (11.5-14.5); RDW Standard Deviation 46.5 fL (36.4-46.3); Red Blood Count 5.39 M/uL (4.7-6.1); White Blood Count 8.88 K/uL (4.8-10.8)
[2020-04-06 09:04] LABS: BUN Creatinine Ratio 11.2 (10-20); Blood Urea Nitrogen 10 mg/dl (7-18); Calcium 9.4 mg/dl (8.5-10.1); Carbon Dioxide 28 mmol/L (21-32); Chloride 103 mmol/L (98-107); Est GFR (African American) 140.1; Est GFR (Non-African American) 120.9; Glucose 108 mg/dl (70-99); Potassium 3.8 mmol/L (3.5-5.1); Sodium 139 mmol/L (136-145)
--- NOTE | 2020-04-06 14:45 | Discharge Summary ---
Date of Service April 06, 2020 Admission HPI Per Admitting Provider Mr. Harmon presents today with intentional overdose of sodium nitrate. He ingested this liquid about 1 hour FLAMER AFTER LASTING in an intentional suicide attempt. Per ED physician, he googled a way to kill himself online and had ordered this material online. The patient states the bottle had 115 g of powder. He thinks based on how he mixed things up that he drank around 10 to 12 g. He also took 2 Zofran tablets. He called his parents in [place] and they convinced him to come to the ED. He reports headache and stomach upset with epigastric discomfort. He denies aches, chills, sob, chest pain, n/v/d, dysuria or hesitancy or musculoskeletal pain. He reports he failed all of his classes and that is what caused him to attempt to kill himself but he now regrets it and wants to live. Per the ED physician, patient was becoming acutely cyanotic. He was given methylene blue as instructed by poison control with rapid improvement. At the time of my assessment his was mildly tachycardic and otherwise vital signs were stable. No significant medical history No significant family medical history Lives alone, never smoker, no alcohol, no elicit substances, student Primary Care Provider: NO PCP Principal Diagnosis Overdose, Suicide attempt Discharge Exam Constitutional WD/WN, vitals as above Respiratory normal respiratory effort, lungs clear to auscultation Cardiovascular RRR, no murmur, no edema Gastrointestinal (Abdomen) normal bowel sounds, soft, nontender, no hepatosplenomegaly Musculoskeletal no cyanosis or clubbing, extremities motor strength 5/5 Skin no rashes, warm and dry Neurologic moves all extremities and awake Psychiatric A+Ox3, euthymic affect Discharge Data Allergies Allergy/AdvReac Type Severity Reaction Status Date / Time No Known Allergies Allergy Unverified 04/04/20 13:06 Consultations 04/04/20 14:17 ED Decision to Admit Stat 04/04/20 15:10 Consult Case Management - Discharge Planning Routine Consult Diesel Retrofit Designer Routine Consult Psychiatry Routine Hospital Course (1) Suicide attempt: Consulted psychiatry, patient will need inpatient psychiatric care - medically cleared to go to behavioral health 1:1 in the room (2) Methemoglobinemia: Methemoglobin greater than 10% on ABG in ED, given methylene blue per poison control recommendations with rapid relief of cyanosis and improvement of symptoms Provided IVF with LR Urine tox was negative Methemoglobin level trended back to normal Lactic acid was 4.1 on arrival to ICU and trended back to normal No osmolar gap. Consulted plate painter apprentice (3) Hypokalemia: Replaced and resolved (4) Tachycardia: Intermittent, asymptomatic, sinus tachycardia (5) DVT prophylaxis: SCDs Dispo: 302 for behavioral health Total Time Total Time Spent Total Time Spent (In Minutes): greater than 30 minutes Discharge Plan Discharge Items Patient Disposition: Transfer Behavioral Health Fac Reason For Visit: OVERDOSE Discharge Diagnosis: Overdose, suicide attempt Condition on Discharge: Serious Activity: Resume your previous activity Non-emergency contact: Primary Care Provider Call non-emergency contact if: you have any medication questions Follow-up/Referrals: PCP,IGOR [Physician] - Diet: Regular Addtl Attending Provider Instructions: . Pending Studies at Discharge: No Stand-Alone Forms: [facility], Suicide Prevention Resources Medications and DC Order Prescriptions: No Action No Known Home Medications RF: 0 Discharge Orders: Discharge Order (Routine); Ordered 04/06/20 Ordered By: Hilda Hart Admission Data Admit Date/Time: 04/04/20 14:17 Attending Provider: Flash Mahajan Admit Provider: Flash Mahajan Primary Care Provider: [facility] Other Providers: Flash Mahajan ; Sunil Holloway ; [place] Other Interventions: Discharge Summary Assessment (RN) Last Done: 04/06/20 14:44 DC Date/Time DO NOT enter until pt leaves facility: 04/06/20 15:13 Supervising Physician Co-Signing Physician Notes I supervised Hilda Hart NP on this patient's care. I examined the patient today independently of her. I discussed the plan of care with her with the plan being as written in her note except for any following changes/exceptions: None. In no distress today. Plan for psychiatric admission. Coding Level of Care Code D/C Day Management >30 mins Diagnoses Suicide attempt T14.91XA Methemoglobinemia D74.9 Hypokalemia E87.6 Tachycardia R00.0 DVT prophylaxis Z29.9
== END 2020-04-06 15:13 | DRG 918 ==
LOC: ED 11:44 → 1E 14:17 → 2N 04-05 14:52

== ENCOUNTER 2020-04-06 14:59 | Inpatient (IN) ==
[2020-04-06] MEDS ORDERED: BISMUTH SUBSALICYLATE PER ML OMNICELL CHARGE PO PRN (15:32)
[2020-04-06] MEDS ORDERED: SODIUM CHLORIDE 0.65% NA SOLN 45 ML (OCEAN) PRN (15:32)
[2020-04-06] MEDS ORDERED: ACETAMINOPHEN 325 MG TAB PO PRN (15:32)
[2020-04-06] MEDS ORDERED: MAGNESIUM HYDROXIDE SUSP 30 ML UDC PO PRN (15:32)
[2020-04-06] MEDS ORDERED: ALUMINUM/MAGNESIUM SUSP 30 ML UDC PO PRN (15:32)
--- NOTE | 2020-04-06 17:42 | History & Physical ---
Date of Service April 06, 2020 Impression / Recommendations Impression This 19-year-old man was admitted as a transfer from the medical service where he had been admitted on 04/04/2020 following a suicide attempt by self poisoning with sodium nitrate or nitrite. The patient described the attempt as impulsive, but certainly there was some degree of forethought because he also acknowledges that 3 to 5 days prior to the attempt he had researched suicide methods online and had ordered the chemical that he eventually used to self-poison. I gently confronted the patient with that fact, and he explained that what he means is that he had never even contemplated suicide until approximately a week ago when it became clear to him that he was at grave danger of failing a number of his courses this semester. After ruminating about the impending reality of failing his courses, he then conducted the research and ordered the materials necessary to make the suicide attempt. And then upon officially being notified on 04/04/2020 that he had, in fact, failed the courses that he was afraid he was going to fail and after learning that he would have no choice but to repeat them, he became overwhelmed by the shame of the failure and the shame he felt because he was going to need to ask his parents to pay to allow him to repeat a semester at college, while he knew that they were already struggling financially in order to send his brother and him to their respective schools. He acknowled ges overwhelming regret occurred not long after he had taken the overdose and that he had come to a full realization that he, in fact, does not want to . Also, having actually gotten over the pablo of telling his parents what had happened to him academically, and after receiving assurances of their love and support, he felt a tremendous relief and refocused on the future. I do not find that the patient meets criteria for major depressive disorder. Instead, the differential diagnosis includes unspecified depression or, perhaps more likely, adjustment disorder with mixed emotional features. The patient is fairly convincing in his assertions that he regrets making the suicide attempt and there is no longer entertaining thoughts of suicide. His affect remains anxious and perhaps somewhat depressed, but I believe that, at the age of 19, he is probably more frightened than anything. He talks about how terrifying it was to begin to show physical symptoms after he took the overdose and realized that he might, in fact, actually . I would not recommend antidepressant medications for the patient. I talked to him about medications that can help with depression and anxiety, such as the selective serotonin reuptake inhibitors. The patient said that he would prefer not to take psychiatric medication because he does not see himself as being depressed, and he feels that his anxiety is largely situational. Instead, he would like to get into individual supportive therapy locally, with plans to continue the therapy next fall if he returns to [employer] for in person classes. He also says that he hopes to be able to return to [facility] for the summer so that he can enjoy the support of his family. Because of the very serious nature of the patient's suicide attempt, and because of its potential lethality, and because the patient did, in fact, planned the suicide attempt, I feel that it is important to monitor him over the next few days, and to work on teaching the improved individual coping strategies, to arrange appropriate aftercare, and to develop a strong safety plan for the community. (1) Suicide attempt: 04/06/20 -Patient acknowledges that he made a planned suicide attempt 2 days ago. He has been admitted to the [facility] behavioral health unit and is being closely observed on suicide precautions. He has been referred to individual, group, and activity therapies. I have also actively encouraged him to participate fully in these groups, while acknowledging that he tends to be somewhat shy and quiet. -The patient reports that he regrets making the suicide attempt, is very glad that he did not succeed, and finds what he did to be embarrassing. At the same time, he reports that having overcome the pablo of telling his parents that he will have to repeat the current semester in college provided him with a great relief, and he says that he now feels prepared to focus on learning strategies to avoid and appropriate individual coping strategies in the future and to assure that he remains safe. -Given the seriousness of the attempt and the fact that it was planned through research and ordering the means necessary online, we agree that inpatient psychiatric hospitalization is currently the least restrictive least intensive level of care consistent with the patient's clinical and safety needs. Present on Admission?: Yes (2) Adjustment disorder with mixed anxiety and depressed mood: 04/06/20 -The patient does not seem to meet criteria for major depressive disorder. Instead, the patient reports that he has been having a great deal of difficulty adjusting to the changes that have been brought about by the current COVID-19 pandemic and the local response to it. He says that he had not realized the degree to which he was thriving within the usual academic atmosphere associated with in person classes and active college life until, suddenly, he found that all of his friends had moved back home for the duration and that he was now alone in [place] without a support system. The patient also notes that he had not anticipated difficulty being able to learn through online classes, but indicates that he has been habituated throughout his entire life to learning in classrooms and, to his great surprise, he found that he simply was not able to learn on line. Within this context, he became more anxious and somewhat overwhelmed. He was also having difficulty adjusting to the reality that at some point he was going to have to tell his parents that he had failed and was going to need to repeat the current semester. The context for this is that the parents have been struggling financially to send the patient, and his special needs younger brother to their respective schools and he was having difficulty accepting the reality that he was, in fact, going to have to tell them. The patient is able to independently recognize that his thinking has become somewhat distorted when he thought that he would be doing his parents a favor by sparing them the financial burden of sending him to college. He also acknowledges that he feels that part of him was simply not brave enough to face his family with his failure. He agrees that these are issues that he can work through and explore in individual psychotherapy, during the stay, and following hospitalization on an outpatient basis. -We discussed the possibility of the use of a selective serotonin reuptake inhibitor, probably more for anxiety than for depression. The patient says that he does not currently feel depressed, and was really not aware of feeling depressed until approximately a week before the suicide attempt when he came to the realization that he was unlikely to pass a number of his courses. Explains that his emotion ran more towards shame and panic than to depression. We discussed material risks and anticipated benefits of antidepressant medications, and the patient said that he would prefer not to take antidepressant medications at the present time but will consider it for the future. Present on Admission?: Yes Inventory Assets Strengths: Intelligent. Motivated. Future oriented. Cooperative. Personable. Strong family support. Needs: Improved individual coping strategies. Sustained resolution of suicidal thoughts. Risk Factors Assessment Male. Serious suicide attempt. Planned attempt. Mitigating factors include the fact that he informed other people that he had taken an overdose and agreed to call emergency medical personnel. 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 He lives alone and has no previous psychiatric history. Mr. Roca and was admitted as a transfer from the medical service on 04/06/20 15:18 on a 302 involuntary commitment following a suicide attempt without had occurred on the morning of 04/04/2020. Chief Complaint " It was really impulsive. I just wish I had not done it.". 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 He reports no previous contact with the psychiatric community, and indicates that until recently he considered himself to be a happy, well adjusted, and academically successful ("straight A") student. He notes that he had a supportive group of friends and enjoyed studying, achieving academic success, and spending social time with his friends. However, when [employer] canceled all in person classes in January of this year many of his friends either went back to their homes in the [place], or went back to their home country in order to continue classes online. However, the patient elected to remain in [place], a decision that he tells us that he made because he had a lease on his local apartment, and had not considered that he would begin to feel lonely his entire [place] of friends left town for the foreseeable future. In addition to having great difficulty adjusting to the pursuant social isolation; i.e., living alone in a small apartment with no support group, he had unexpected difficulty with online learning. He notes that this is the first time in his life that he is ever tried to learn in any way other than by in person teaching, and he found the "canned" lectures and related assignments to be confusing difficult to follow. Within this context, his grades began to slip from what he reported to have been "straight A's" to what eventually became failing grades in several of his classes, and "just passing grades" and others. As time went on, he says that he began to panic because he was not accustomed to not being able to achieve top grades and, perhaps because of a certain degree of diffidence, he had trouble asking for help. Last week, he began to realize that he was very likely to fail as many as 3 of his classes and, within that context, over the weekend began to ruminate excessively about the consequences of failing at [employer]. He notes that his parents have been struggling financially in [facility] in order to allow him to go to [employer] and to support him while he is here. Also, he has a younger brother who suffers from autism and a number of learning disabilities, and the p arents have an additional financial burden associated with sending the special needs brother to special schools. Accordingly, he decided that the best thing for him to do might be to commit suicide so as to not burden his parents with having to pay for him to repeat his current semester at [employer]. More specifically, he said that he dreaded telling them that he had failed and would need to repeat most or all of the courses he had taken the semester because he realized that this would translate into an additional financial burden for his parents were already struggling financially. The patient acknowledges that over the weekend he researched methods of suicide online, and read that an overdose of a readily available chemical, sodium nitrate or sodium nitrite could be taken in lethal doses, and could be ordered online from [employer]. His research also caused him to realize that he would be at risk of regurgitating the lethal chemical unless he took an antiemetic, and so he also secured a supply of an unspecified antiemetic. The patient reports that this past Thursday (04/04/2020) he received his grades and they were, as he feared, failing grades in the classes that he had expected to fail. He called at least 1 of his professors and the professor reportedly said that there was nothing that could be done about it and that the grades had already been submitted. At that point, highly distressed, the patient reportedly took the antiemetic and then proceeded to measure roughly 500 g of the sodium nitrate/nitrite, dissolved at in water, and drank about half of the solution. He notes that despite the antiemetic he felt nauseated and generally unwell. He then telephoned his parents in [place] in order to "say goodbye." He told his parents what he had done and why, and, fortunately, his parents convinced him to "call 911." His parents also offered him assurances that they understood his situation and were not angry. The patient then promptly called 911 and came to the hospital. Upon arriving at the hospital, the patient was aware that he was experiencing respiratory distress and notes that he became highly frightened that he might actually . He also describes having a crystal-clear realization that he did not want to and that he deeply regretted what he had done. He notes that an IV was started and he was treated with methylene blue. His vital signs remained unstable, and he was monitored in the medical service for 2 days then transferred to psychiatry. He had considered signing and voluntary, but spoke with an junior net developer who suggested that he not acknowledge that he had a mental illness by signing a voluntary agreement, and so he was involuntarily confinedalthough he says that he is perfectly willing to cooperate with treatment and only refused to sign the voluntary agreement because he is afraid that this will somehow interfere with him being able to keep a student visa while he finishes undergraduate and then graduate school. Further, the patient reports that he has spoken with his parents several times since being hospitalized. They remain highly supportive, concerned, and have repeatedly told him that, in essence, they do not care about his school or the expense, they just want him alive. The patient has a fairly extensive family in [place], including his parents, all 4 grandparents, and an extended family. His parents are encouraging him to return to [place] soon as travel from the [facility] to [facility] becomes permissible. While the patient reports that he was having great difficulty adjusting to the various realities that were brought forth by the COVID-19 pandemic and various changes and limitations were made necessary because of it, he does not feel that he has been particularly depressed. He acknowledges feeling very anxious about his grades and the impact that his failure might have on his family and their finances. Past Psychiatric History Previous Psych History: The patient reports that he has no previous contact with the psychiatric community. Current Psychiatric Diagnosis: Depression [facility] Outpatient Services: The patient reports that he has not ever received any form of psychiatric or other mental health treatment. Previous Psych Admissions: The patient notes that he has no history of any previous psychiatric hospitalization. Do You Have Access To A Gun?: No History of Previous Suicide Attempt: No (The patient reports that the self- poisoning that precipitated the current admission represents his only suicide) Describe Attempts in the Past: None Past Medication Trials: None. The patient reports that he has never taken any psychiatric medications. Additional Notes: We reviewed the symptoms of depression and the symptoms of generalized anxiety. He notes that he has never been aware of having any of the symptoms of depression, but he does acknowledge that he has sometimes felt anxiety and has had some difficulty with self soothing. He indicates that 1 of his coping mechanisms involves sleeping so that he can stop worrying about various problems. Past Head Trauma/Neuro History History of Concussion/Seizure: No Allergies Allergy/AdvReac Type Severity Reaction Status Date / Time No Known Allergies Allergy Unverified 04/04/20 13:06 Home Medications Home Medications Medication Instructions Recorded Confirmed Type No Known Home Medications 04/04/20 04/04/20 History Family History Family History of: None Alcohol History Hx of Alcohol Use Over the Past 12 Months: No AUDIT Total Score: 0 The patient reports that he does not drink alcoholic beverages and never has Smoking Use Have You Smoked or Used Tobacco Products in the Last 30 Days: No Smoking Status: Never smoker Substance History Hx of Prescription Med Misuse Over the Past 12 Months: No Hx of Over the Counter Med Misuse Over the Past 12 Months: No Hx of Inhalent Misuse Over the Past 12 Months: No Hx of Organic Substance Use Over the Past 12 Months: Yes (Overdose on Sodium Nitrate CREDIT AND COLLECTION MANAGER) Hx of Illegal Substances/Street Drug Use Over Past 12 Months: No Personal History Living Arrangements: Apartment Living Arrangements Comments: The patient lives alone in an off-campus apartment. Born In: Reports that he was born and raised near [facility] by both parents. Childhood: Patient reports a happy childhood. He reports no history of trauma. His only sibling is a younger brother. The patient reports that his younger brother has been diagnosed with autism and has specific learning disabilities which necessitate special schooling. Highest Grade Completed: Some College Employment Status: Student Marital Status: Single Beliefs That Will Affect Care: None Current Legal Problems: No Hx Legal Problems: No Hx Traumatic Life Events: No Patient History Social History Preferred Language: Venezuelan Communication Ability: Effective Gerontology Aide Required: No Beliefs That Will Affect Care: None Current Living Situation: Alone Feels Safe at Home: Yes Smoking Status: Never smoker Hx Substance Use: No Review of Systems Review of Systems: All systems reviewed & are unremarkable except as noted in HPI & below A review of at least 10 systems was completed by the undersigned. The patient does not endorse any current or past somatic problems. The somatic history, physical examination, and review of systems completed by Flash Mahajan MD in the emergency department has been reviewed and is excepted for purposes of medical clearance to the behavioral health unit. Physical Exam Psychiatric: Orientation: alert, oriented x 3 and cooperative Apperance: appropriately dressed and appropriately groomed Eye Contact: + fair eye contact Motor Behavior: + tremor The patient is slightly tremulous at first, and appears anxious. After time and reassurances the tremor stopped. Speech: normal rate/rhythm/volume of speech Affect: + anxious affect The patient smiles broadly several times during the encounter and chuckles when he says that he was surprised to learn that he had been treated with "methylene blue" following his self-poisoning. Mood: + anxious mood "Embarrassed." Thought Process: goal directed thought process, linear/logical thought process and clear/coherent thought process Thought Content: reality based without delusions Suicidal Thoughts: denies suicidal thoughts The patient is clearly future oriented. For example, he consulted with an commonwealth attorney before deciding whether to sign in voluntarily or except 302 commitment. He talks at some length about his long-term academic plans and about his hopes that he will be able to achieve permanent residency [place] residency status, or even citizenship. Homicidal Thoughts: denies homicidal thoughts Hallucinations: no auditory hallucinations and no visual hallucinations Cognition: recent memory grossly intact, remote memory grossly intact, attention grossly intact and language grossly intact Estimated Intelligence: + above average estimated intelligence Insight: + fair insight Judgement: + fair judgement The patient recognizes his need for treatment. We discussed the fact that he has been lonely and feels isolated, and he indicates that he feels that it would be helpful for him to begin psychotherapy with a outpatient therapist. He also reports that he wants to be fully cooperative with treatment. Vital Signs (Past 24 Hours): Last Vital Signs Temp 36.7 C 04/06/20 15:28 Pulse 80 04/06/20 15:28 Resp 14 04/06/20 15:28 BP 108/76 04/06/20 15:28 Pulse Ox 99 04/06/20 15:28 Results & Data ([facility] [email or web address] Current Inpatient Medications Current Inpatient Medications: Current Inpatient Medications Acetaminophen (Tylenol) 650 mg PO Q4H PRN PRN Reason: Headache or Minor Fever Stop: 05/06/20 15:31 Al Hydrox/Mg Hydrox/Simethicone (Maalox) 30 ml PO Q4H PRN PRN Reason: GI Upset Stop: 05/06/20 15:31 Bismuth Subsalicylate (Kaopectate) 15 ml PO PRN PRN PRN Reason: Loose Stool Stop: 05/06/20 15:31 Hydroxyzine HCl (Vistaril) 50 mg PO HSZ PRN PRN Reason: Insomnia Stop: 05/06/20 15:31 Hydroxyzine HCl (Vistaril) 25 mg PO Q4H PRN PRN Reason: Anxiety Stop: 05/06/20 15:31 Magnesium Hydroxide (Milk Of Magnesia) 30 ml PO DAILY PRN PRN Reason: Constipation Stop: 05/06/20 15:31 Sodium Chloride ([place] Nasal) 1 - 2 sprays NA PRN PRN PRN Reason: Nasal Dryness/Congestion Stop: 05/06/20 15:31
--- NOTE | 2020-04-07 16:14 | Psychiatric Progress Note ---
Date of Service April 07, 2020 Impression / Recommendations Impression Per admitting provider: This 19-year-old man was admitted as a transfer from the medical service where he had been admitted on 04/04/2020 following a suicide attempt by self poisoning with sodium nitrate or nitrite. The patient described the attempt as impulsive, but certainly there was some degree of forethought because he also acknowledges that 3 to 5 days prior to the attempt he had researched suicide methods online and had ordered the chemical that he eventually used to self-poison. I gently confronted the patient with that fact, and he explained that what he means is that he had never even contemplated oseguera icide until approximately a week ago when it became clear to him that he was at grave danger of failing a number of his courses this semester. After ruminating about the impending reality of failing his courses, he then conducted the research and ordered the materials necessary to make the suicide attempt. And then upon officially being notified on 04/04/2020 that he had, in fact, failed the courses that he was afraid he was going to fail and after learning that he would have no choice but to repeat them, he became overwhelmed by the shame of the failure and the shame he felt because he was going to need to ask his parents to pay to allow him to repeat a semester at college, while he knew that they were already struggling financially in order to send his brother and him to their respective schools. He acknowledges overwhelming regret occurred not long after he had taken the overdose and that he had come to a full realization that he, in fact, does not want to . Also, having actually gotten over the pablo of telling his parents what had happened to him academically, and after receiving assurances of their love and support, he felt a tremendous relief and refocused on the future. I do not find that the patient meets criteria for major depressive disorder. Instead, the differential diagnosis includes unspecified depression or, perhaps more likely, adjustment disorder with mixed emotional features. The patient is fairly convincing in his assertions that he regrets making the suicide attempt and there is no longer entertaining thoughts of suicide. His affect remains anxious and perhaps somewhat depressed, but I believe that, at the age of 19, he is probably more frightened than anything. He talks about how terrifying it was to begin to show physical symptoms after he took the overdose and realized that he might, in fact, actually . I would not recommend antidepressant medications for the patient. I talked to him about medications that can help with depression and anxiety, such as the selective serotonin reuptake inhibitors. The patient said that he would prefer not to take psychiatric medication because he does not see himself as being depressed, and he feels that his anxiety is largely situational. Instead, he would like to get into individual supportive therapy locally, with plans to continue the therapy next fall if he returns to [place] for in person classes. He also says that he hopes to be able to return to [facility] for the summer so that he can enjoy the support of his family. Because of the very serious nature of the patient's suicide attempt, and because of its potential lethality, and because the patient did, in fact, planned the suicide attempt, I feel that it is important to monitor him over the next few days, and to work on teaching the improved individual coping strategies, to arrange appropriate aftercare, and to develop a strong safety plan for the community. (1) Suicide attempt: 04/06/20 -Patient acknowledges that he made a planned suicide attempt 2 days ago. He has been admitted to the [facility] and is being closely observed on suicide precautions. He has been referred to individual, group, and activity therapies. I have also actively encouraged him to participate fully in these groups, while acknowledging that he tends to be somewhat shy and quiet. -The patient reports that he regrets making the suicide attempt, is very glad that he did not succeed, and finds what he did to be embarrassing. At the same time, he reports that having overcome the pablo of telling his parents that he will have to repeat the current semester in college provided him with a great relief, and he says that he now feels prepared to focus on learning strategies to avoid and appropriate individual coping strategies in the future and to assure that he remains safe. -Given the seriousness of the attempt and the fact that it was planned through research and ordering the means necessary online, we agree that inpatient psychiatric hospitalization is currently the least restrictive least intensive level of care consistent with the patient's clinical and safety needs. 04/07 - encouraged to push fluids today for asymptomatic hypotension and tachycardia (2) Adjustment disorder with mixed anxiety and depressed mood: 04/06/20 -The patient does not seem to meet criteria for major depressive disorder. Instead, the patient reports that he has been having a great deal of difficulty adjusting to the changes that have been brought about by the current COVID-19 pandemic and the local response to it. He says that he had not realized the degree to which he was thriving within the usual academic atmosphere associated with in person classes and active college life until, suddenly, he found that all of his friends had moved back home for the duration and that he was now alone in [place] without a support system. The patient also notes that he had not anticipated difficulty being able to learn through online classes, but indicates that he has been habituated throughout his entire life to learning in classrooms and, to his great surprise, he found that he simply was not able to learn on line. Within this context, he became more anxious and somewhat overwhelmed. He was also having difficulty adjusting to the reality that at some point he was going to have to tell his parents that he had failed and was going to need to repeat the current semester. The context for this is that the parents have been struggling financially to send the patient, and his special needs younger brother to their respective schools and he was having difficulty accepting the reality that he was, in fact, going to have to tell them. The patient is able to independently recognize that his thinking has become somewhat distorted when he thought that he would be doing his parents a favor by sparing them the financial burden of sending him to college. He also acknowledges that he feels that part of him was simply not brave enough to face his family with his failure. He agrees that these are issues that he can work through and explore in individual psychotherapy, during the stay, and following hospitalization on an outpatient basis. -We discussed the possibility of the use of a selective serotonin reuptake in hibitor, probably more for anxiety than for depression. The patient says that he does not currently feel depressed, and was really not aware of feeling depressed until approximately a week before the suicide attempt when he came to the realization that he was unlikely to pass a number of his courses. Explains that his emotion ran more towards shame and panic than to depression. We discussed material risks and anticipated benefits of antidepressant medications, and the patient said that he would prefer not to take antidepressant medications at the present time but will consider it for the future. 04/07 -Patient continues to deny residual passive or active wish. Describes remorse for suicidal act and appearing forward-looking. We will continue to monitor over weekend without pharmacologic intervention Inventory Assets Strengths: Intelligent. Motivated. Future oriented. Cooperative. Personable. Strong family support. Needs: Improved individual coping strategies. Sustained resolution of suicidal thoughts. 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 Review of Systems Notes Denies dizziness, lethargy, confusion Sleep Information Total Hours of Sleep: 8.75 Meal Information Percent Meal Consumed - Breakfast: 100 Percent Meal Consumed - Lunch: 100 Percent Meal Consumed - Dinner: 90 Subjective Subjective . Patient was seen & assessed and interval progress reviewed with treatment team. Patient transferred on 302 from medical floor on April 06 status post toxic ingestion of sodium nitrate and 2 Zofran tablets. Poison control was consulted and methylene blue administered with rapid relief of cyanosis. He was also treated for hypokalemia. Tachycardia was intermittent and asymptomatic. He was discharged to the behavioral health unit without additional medical treatment recommendations. He is hypotensive and mildly tachycardic with morning vitals but asymptomatic and he reports blood pressure chronically runs low. He describes remorse for toxic ingestion, presently feeling much more hopeful as he plans to return to [facility] to be with his parents, and denies that he was feeling depressed until he was faced with academic failure. He denies any residual thoughts to harm himself and expresses disinterest in pharmacotherapy for mood support secondary to lack of perceived need. He denies any physical complaints this morning. Physical Exam Psychiatric Orientation: alert and cooperative Apperance: + disheveled Eye Contact: + fair eye contact Motor Behavior: steady gait and station and no abnormal motor movements Speech: normal rate/rhythm/volume of speech (Modestly spontaneous) Affect: + anxious affect (Mild. Smiles briefly) Hopeful Thought Process: goal directed thought process and linear/logical thought process Thought Content: reality based without delusions Suicidal Thoughts: denies suicidal thoughts, denies suicidal plan and denies suicidal intent Homicidal Thoughts: denies homicidal thoughts Hallucinations: no auditory hallucinations and no visual hallucinations Cognition: recent memory grossly intact Estimated Intelligence: average estimated intelligence Insight: + fair insight Judgement: + fair judgement Vital Signs (Past 24 Hours) Last Vital Signs Temp 36.6 C 04/07/20 06:00 Pulse 71 04/07/20 06:00 Resp 16 04/07/20 06:00 BP 68/52 L 04/07/20 06:00 Pulse Ox 99 04/06/20 15:28 Results & Data ([facility]) Current Inpatient Medications Current Inpatient Medications: Current Inpatient Medications Acetaminophen (Tylenol) 650 mg PO Q4H PRN PRN Reason: Headache or Minor Fever Stop: 05/06/20 15:31 Al Hydrox/Mg Hydrox/Simethicone (Maalox) 30 ml PO Q4H PRN PRN Reason: GI Upset Stop: 05/06/20 15:31 Bismuth Subsalicylate (Kaopectate) 15 ml PO PRN PRN PRN Reason: Loose Stool Stop: 05/06/20 15:31 Hydroxyzine HCl (Vistaril) 50 mg PO HSZ PRN PRN Reason: Insomnia Stop: 05/06/20 15:31 Hydroxyzine HCl (Vistaril) 25 mg PO Q4H PRN PRN Reason: Anxiety Stop: 05/06/20 15:31 Magnesium Hydroxide (Milk Of Magnesia) 30 ml PO DAILY PRN PRN Reason: Constipation Stop: 05/06/20 15:31 Last Admin: 04/06/20 16:51 Dose: 30 ml Documented by: Sodium Chloride (Christian Nasal) 1 - 2 sprays NA PRN PRN PRN Reason: Nasal Dryness/Congestion Stop: 05/06/20 15:31 Mental Health & Subst Abuse Tx Therapist Name of Therapist: N/A Armature Varnisher Name of Armature Varnisher: N/A Post Discharge Appointments Primary Care Physician Name Of Family Doctor: SAJAN
--- NOTE | 2020-04-08 13:28 | Psychiatric Progress Note ---
Date of Service April 08, 2020 Impression / Recommendations Impression Per admitting provider: This 19-year-old man was admitted as a transfer from the medical service where he had been admitted on 04/04/2020 following a suicide attempt by self poisoning with sodium nitrate or nitrite. The patient described the attempt as impulsive, but certainly there was some degree of forethought because he also acknowledges that 3 to 5 days prior to the attempt he had researched suicide methods online and had ordered the chemical that he eventually used to self-poison. I gently confronted the patient with that fact, and he explained that what he means is that he had never even contemplated oseguera icide until approximately a week ago when it became clear to him that he was at grave danger of failing a number of his courses this semester. After ruminating about the impending reality of failing his courses, he then conducted the research and ordered the materials necessary to make the suicide attempt. And then upon officially being notified on 04/04/2020 that he had, in fact, failed the courses that he was afraid he was going to fail and after learning that he would have no choice but to repeat them, he became overwhelmed by the shame of the failure and the shame he felt because he was going to need to ask his parents to pay to allow him to repeat a semester at college, while he knew that they were already struggling financially in order to send his brother and him to their respective schools. He acknowledges overwhelming regret occurred not long after he had taken the overdose and that he had come to a full realization that he, in fact, does not want to . Also, having actually gotten over the pablo of telling his parents what had happened to him academically, and after receiving assurances of their love and support, he felt a tremendous relief and refocused on the future. I do not find that the patient meets criteria for major depressive disorder. Instead, the differential diagnosis includes unspecified depression or, perhaps more likely, adjustment disorder with mixed emotional features. The patient is fairly convincing in his assertions that he regrets making the suicide attempt and there is no longer entertaining thoughts of suicide. His affect remains anxious and perhaps somewhat depressed, but I believe that, at the age of 19, he is probably more frightened than anything. He talks about how terrifying it was to begin to show physical symptoms after he took the overdose and realized that he might, in fact, actually . I would not recommend antidepressant medications for the patient. I talked to him about medications that can help with depression and anxiety, such as the selective serotonin reuptake inhibitors. The patient said that he would prefer not to take psychiatric medication because he does not see himself as being depressed, and he feels that his anxiety is largely situational. Instead, he would like to get into individual supportive therapy locally, with plans to continue the therapy next fall if he returns to [place] for in person classes. He also says that he hopes to be able to return to [facility] for the summer so that he can enjoy the support of his family. Because of the very serious nature of the patient's suicide attempt, and because of its potential lethality, and because the patient did, in fact, planned the suicide attempt, I feel that it is important to monitor him over the next few days, and to work on teaching the improved individual coping strategies, to arrange appropriate aftercare, and to develop a strong safety plan for the community. (1) Suicide attempt: 04/06/20 -Patient acknowledges that he made a planned suicide attempt 2 days ago. He has been admitted to the [facility] behavioral health unit and is being closely observed on suicide precautions. He has been referred to individual, group, and activity therapies. I have also actively encouraged him to participate fully in these groups, while acknowledging that he tends to be somewhat shy and quiet. -The patient reports that he regrets making the suicide attempt, is very glad that he did not succeed, and finds what he did to be embarrassing. At the same time, he reports that having overcome the pablo of telling his parents that he will have to repeat the current semester in college provided him with a great relief, and he says that he now feels prepared to focus on learning strategies to avoid and appropriate individual coping strategies in the future and to assure that he remains safe. -Given the seriousness of the attempt and the fact that it was planned through research and ordering the means necessary online, we agree that inpatient psychiatric hospitalization is currently the least restrictive least intensive level of care consistent with the patient's clinical and safety needs. 04/07 - encouraged to push fluids today for asymptomatic hypotension and tachycardia 04/08 - denies SI or PDW today however he did verbalize passive wish yesterday to SW as related to feared consequences of 302 (2) Adjustment disorder with mixed anxiety and depressed mood: 04/06/20 -The patient does not seem to meet criteria for major depressive disorder. Instead, the patient reports that he has been having a great deal of difficulty adjusting to the changes that have been brought about by the current COVID-19 pandemic and the local response to it. He says that he had not realized the degree to which he was thriving within the usual academic atmosphere associated with in person classes and active college life until, suddenly, he found that all of his friends had moved back home for the duration and that he was now alone in [place] without a support system. The patient also notes that he had not anticipated difficulty being able to learn through online classes, but indicates that he has been habituated throughout his entire life to learning in classrooms and, to his great surprise, he found that he simply was not able to learn on line. Within this context, he became more anxious and somewhat overwhelmed. He was also having difficulty adjusting to the reality that at some point he was going to have to tell his parents that he had failed and was going to need to repeat the current semester. The context for this is that the parents have been struggling financially to send the patient, and his special needs younger brother to their respective schools and he was having difficulty accepting the reality that he was, in fact, going to have to tell them. The patient is able to independently recognize that his thinking has become somewhat distorted when he thought that he would be doing his parents a favor by sparing them the financial burden of sending him to college. He also acknowledges that he feels that part of him was simply not brave enough to face his family with his failure. He agrees that these are issues that he can work through and explore in individual psychotherapy, during the stay, and following hospitalization on an outpatient basis. -We discussed the possibility of the use of a selective serotonin reuptake inhibitor, probably more for anxiety than for depression. The patient says that he does not currently feel depressed, and was really not aware of feeling depressed until approximately a week before the suicide attempt when he came to the realization that he was unlikely to pass a number of his courses. Explains that his emotion ran more towards shame and panic than to depression. We discussed material risks and anticipated benefits of antidepressant medications, and the patient said that he would prefer not to take antidepressant medications at the present time but will consider it for the future. 04/07 -Patient continues to deny residual passive or active wish. Describes remorse for suicidal act and appearing forward-looking. We will continue to monitor over weekend without pharmacologic intervention 04/08 -As above, patient continues to deny perceived ongoing threat of harm to himself however I am concerned that he expressed recurrence of passive wish when contemplating the potential ramifications of his 302 commitment yesterday. He is minimizing this morning with apparent flight to health and continues to decline consideration for pharmacotherapy or outpatient therapy follow-up. He remains at risk for recurrence of self-harm if discharged prematurely within the context of researched and potentially lethal self-harm attempt which ultimately resulted in his current psychiatric hospitalization. Inventory Assets Strengths: Intelligent. Motivated. Future oriented. Cooperative. Personable. Strong family support. Needs: Improved individual coping strategies. Sustained resolution of suicidal thoughts. 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 Review of Systems Notes Denies sedation, confusion, lightheadedness Sleep Information Total Hours of Sleep: 8 Meal Information Percent Meal Consumed - Breakfast: 100 Percent Meal Consumed - Lunch: 100 Percent Meal Consumed - Dinner: 90 Subjective Subjective Patient was seen & assessed and interval progress reviewed with treatment team. Per social work note from yesterday, patient expressed feeling that he wished he had been successful in taking his life due to feared ramifications of 302 commitment "on my record." He also refused outpatient therapy referral yesterday for same reason that it would be on his record and somehow prevent him from seeking citizenship in this country in the future. He has been in contact with an supplier specialist about this. He minimizes this on interview today sta ting that he realizes that it might not be a big deal and he plans to talk to another warehouse forklift operator in the future. He minimizes mood concerns today and describes himself as "much more hopeful" and I find him interestingly less anxious appearing and more determined with stated goal of pursuing discharge to the point that he is interruptive multiple times throughout the interview. He denies feeling sad, depressed, hopeless, or entertaining passive or active wish today. He indicates that his family continues to demonstrate support for him however he acknowledges that some of his extended family "look down on failure" however his parents have reassured him that they will not disclose his circumstances to any family who are unlikely to be supportive. He continues to deny rigidity of expectations at baseline. He does acknowledge that he was used to doing very well academically and academic failure was shocking and not tolerable to him. He was encouraged to consider the fact that his coping became overwhelmed to the point that he could not bear to continue on resulting in serious self-harm attempt. While he acknowledges this, he rather concretely states that it would not be a problem again in the future because he does not want to repeat it. He continues to decline to consider pharmacological supports. Physical Exam Psychiatric Orientation: alert and oriented x 3 Apperance: appropriately dressed and appeared stated age Eye Contact: good eye contact Motor Behavior: steady gait and station and no abnormal motor movements Speech is much more spontaneous to the point of being interruptive today Affect: no depressed affect and no labile affect Affect determined "Hopeful" Thought Process: goal directed thought process Thought Content: + preoccupation Suicidal Thoughts: denies suicidal thoughts and denies suicidal plan Hallucinations: no auditory hallucinations and no visual hallucinations Cognition: recent memory grossly intact and language grossly intact Insight: + fair insight Judgement: + fair judgement Vital Signs (Past 24 Hours) Last Vital Signs Temp 36.4 C L 04/08/20 06:37 Pulse 98 H 04/08/20 06:38 Resp 16 04/08/20 06:37 BP 98/55 L 04/08/20 06:38 Pulse Ox 99 04/06/20 15:28 Results & Data ([facility]) Current Inpatient Medications Current Inpatient Medications: Current Inpatient Medications Acetaminophen (Tylenol) 650 mg PO Q4H PRN PRN Reason: Headache or Minor Fever Stop: 05/06/20 15:31 Al Hydrox/Mg Hydrox/Simethicone (Maalox) 30 ml PO Q4H PRN PRN Reason: GI Upset Stop: 05/06/20 15:31 Bismuth Subsalicylate (Kaopectate) 15 ml PO PRN PRN PRN Reason: Loose Stool Stop: 05/06/20 15:31 Hydroxyzine HCl (Vistaril) 50 mg PO HSZ PRN PRN Reason: Insomnia Stop: 05/06/20 15:31 Hydroxyzine HCl (Vistaril) 25 mg PO Q4H PRN PRN Reason: Anxiety Stop: 05/06/20 15:31 Magnesium Hydroxide (Milk Of Magnesia) 30 ml PO DAILY PRN PRN Reason: Constipation Stop: 05/06/20 15:31 Last Admin: 04/06/20 16:51 Dose: 30 ml Documented by: Sodium Chloride ([place] Nasal) 1 - 2 sprays NA PRN PRN PRN Reason: Nasal Dryness/Congestion Stop: 05/06/20 15:31 Mental Health & Subst Abuse Tx Therapist Name of Therapist: N/A Soil Conservation Technician Name of Soil Conservation Technician: N/A Post Discharge Appointments Primary Care Physician Name Of Family Doctor: SAJAN
--- NOTE | 2020-04-09 08:21 | Psychiatric Progress Note ---
Date of Service April 09, 2020 Impression / Recommendations Impression 19-year-old man was admitted as a transfer from the medical service where he had been admitted on 04/04/2020 following a suicide attempt by self poisoning with sodium nitrate or nitrite, after looking it up on the internet and taking a lethal dose. The attempt was planned for 3 - 5 days prior, researching suicide methods online, ordering the chemical, and waiting for it to arrive. He continues to experience suicidal thoughts, triggered by concerns that his planned future may be jeopardized by recent poor grades and/or mental health treatment, but they are decreased in frequency and intensity. He is very motiv ated to convince us that he does not have a mental illness, so it is unclear if his suicide attempt was related to a major depressive episode or not. He reports poor functioning over the past couple of months, which led to poor academic performance and failing several classes, but he attributes this to social isolation and online classes rather than symptoms of depression. He has no supports locally and has not allowed us to speak with his parents, so we have not been able to get any collateral information. He is working on a plan to return to [facility] for the summer, and we will coordinate with the University today regarding academic and support options for him. Inpatient treatment remains medically necessary due to the severity of his suicide attempt and risk for harm to self/suicide if discharged prematurely. (1) Adjustment disorder with mixed anxiety and depressed mood: 04/06/20 -The patient does not seem to meet criteria for major depressive disorder. Instead, the patient reports that he has been having a great deal of difficulty adjusting to the changes that have been brought about by the current COVID-19 pandemic and the local response to it. He says that he had not realized the degree to which he was thriving within the usual academic atmosphere associated with in person classes and active college life until, suddenly, he found that all of his friends had moved back home for the duration and that he was now alone in [place] without a support system. The patient also notes that he had not anticipated difficulty being able to learn through online classes, but indicates that he has been habituated throughout his entire life to learning in classrooms and, to his great surprise, he found that he simply was not able to learn on line. Within this context, he became more anxious and somewhat overwhelmed. He was also having difficulty adjusting to the reality that at some point he was going to have to tell his parents that he had failed and was going to need to repeat the current semester. The context for this is that the parents have been struggling financially to send the patient, and his special needs younger brother to their respective schools and he was having difficulty accepting the reality that he was, in fact, going to have to tell them. The patient is able to independently recognize that his thinking has become somewhat distorted when he thought that he would be doing his parents a favor by sparing them the financial burden of sending him to college. He also acknowledges that he feels that part of him was simply not brave enough to face his family with his failure. He agrees that these are issues that he can work through and explore in individual psychotherapy, during the stay, and following hospitalization on an outpatient basis. -We discussed the possibility of the use of a selective serotonin reuptake inhibitor, probably more for anxiety than for depression. The patient says that he does not currently feel depressed, and was really not aware of feeling depressed until approximately a week before the suicide attempt when he came to the realization that he was unlikely to pass a number of his courses. Explains that his emotion ran more towards shame and panic than to depression. We discussed material risks and anticipated benefits of antidepressant medications, and the patient said that he would prefer not to take antidepressant medications at the present time but will consider it for the future. 04/07 -Patient continues to deny residual passive or active wish. Describes remorse for suicidal act and appearing forward-looking. We will continue to monitor over weekend without pharmacologic intervention 04/08 -As above, patient continues to deny perceived ongoing threat of harm to himself however I am concerned that he expressed recurrence of passive wish when contemplating the potential ramifications of his 302 commitment yesterday. He is minimizing this morning with apparent flight to health and continues to decline consideration for pharmacotherapy or outpatient therapy follow-up. He remains at risk for recurrence of self-harm if discharged prematurely within the context of researched and potentially lethal self-harm attempt which ultimately resulted in his current psychiatric hospitalization. 04/09 -Patient continues to deny acute SI, but risk remains as he is not allowed for meeting with his parents, has no local supports and is not sure when he will be able to return to [facility], is minimizing mood symptoms and does not yet have a good plan for dealing with his academic issues. We will continue to encourage a family meeting with parents, a plan for local outpatient supports until he is able to return to [facility], and coordination with University regarding his academics. (2) Suicide attempt by drug ingestion: Inventory Assets Strengths: Intelligent. Motivated. Future oriented. Cooperative. Personable. Strong family support. Needs: Improved individual coping strategies. Sustained resolution of suicidal thoughts. 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 He lives alone and has no previous psychiatric history. Mr. Roca and was admitted as a transfer from the medical service on 04/06/20 15:18 on a 302 involuntary commitment following a suicide attempt on the morning of 04/04/2020. Chief Complaint "Definitely doing better than in the ICU". Review of Systems Sleep Information Total Hours of Sleep: 6.5 Meal Information Percent Meal Consumed - Breakfast: 100 Percent Meal Consumed - Lunch: 100 Percent Meal Consumed - Dinner: 100 Subjective Subjective Patient was seen & assessed and interval progress reviewed with treatment team. Staff report he has been focused on his insistence that he does not have a mental illness, and over the weekend expressed SI stating he wished he had as he could not longer become a citizen of the [place]. Yesterday he appeared to have a flight into health and said everything was fine. He continues to refuse a family meeting with his parents. He is refusing outpatient care, stating he doesn't need it as he doesn't have a mental illness. He states he will return to [facility] sometime during the summer, but doesn't know when. He has refused a family meeting, and has not been able to identify any supports here. On my assessment, he states that his mood has improved since he presented to the hospital, and that he is feeling more hopeful. He admits to ongoing suicidal thoughts, but states they are less intense than prior to admission. He says he is now more hopeful that he will be able to get some of his feeling grades removed, and is willing to talk to the University about this today. He states he is hoping to return home to [facility] within a couple of weeks and to spend the summer there, but does not know when he will be able to travel as he says currently there are no flights going to [facility]. In the interim, he is working on a plan to keep himself busy, including reading, exercising, and "catching up on my studies." He remains adamant that he does not have a mental illness or depression, although he admits to "loneliness" and had not been functioning well for the past couple of months. He later says "I was not actually depressed, just homesick." He was focused on his discharge date, wanting to know exactly when he would leave, and stating he "signed up for a 302." He reports fair sleep and appetite, but states appetite is poor in part because he was receiving the same food for every meal, which has gotten better since he spoke with the wool hanker. Physical Exam Psychiatric Orientation: alert and cooperative Apperance: appropriately dressed and appeared stated age Thin [place] male, seated in no acute distress Eye Contact: good eye contact Motor Behavior: steady gait and station and no abnormal motor movements Speech: normal rate/rhythm/volume of speech Affect: + anxious affect "Definitely doing better." Thought Process: goal directed thought process Thought Content: reality based without delusions Suicidal Thoughts: denies suicidal thoughts Homicidal Thoughts: denies homicidal thoughts Hallucinations: no auditory hallucinations Cognition: recent memory grossly intact, attention grossly intact and language grossly intact Insight: + impaired insight Judgement: + impaired judgement Vital Signs (Past 24 Hours) Last Vital Signs Temp 36.3 C L 04/09/20 06:55 Pulse 120 H 04/09/20 06:56 Resp 18 04/09/20 06:55 BP 122/75 04/09/20 06:56 Pulse Ox 99 04/06/20 15:28 Results & Data ([facility]) Current Inpatient Medications Current Inpatient Medications: Current Inpatient Medications Acetaminophen (Tylenol) 650 mg PO Q4H PRN PRN Reason: Headache or Minor Fever Stop: 05/06/20 15:31 Al Hydrox/Mg Hydrox/Simethicone (Maalox) 30 ml PO Q4H PRN PRN Reason: GI Upset Stop: 05/06/20 15:31 Bismuth Subsalicylate (Kaopectate) 15 ml PO PRN PRN PRN Reason: Loose Stool Stop: 05/06/20 15:31 Hydroxyzine HCl (Vistaril) 50 mg PO HSZ PRN PRN Reason: Insomnia Stop: 05/06/20 15:31 Hydroxyzine HCl (Vistaril) 25 mg PO Q4H PRN PRN Reason: Anxiety Stop: 05/06/20 15:31 Magnesium Hydroxide (Milk Of Magnesia) 30 ml PO DAILY PRN PRN Reason: Constipation Stop: 05/06/20 15:31 Last Admin: 04/06/20 16:51 Dose: 30 ml Documented by: Sodium Chloride ([place] Nasal) 1 - 2 sprays NA PRN PRN PRN Reason: Nasal Dryness/Congestion Stop: 05/06/20 15:31 Mental Health & Subst Abuse Tx Therapist Name of Therapist: N/A Form Building Supervisor Name of Form Building Supervisor: N/A Post Discharge Appointments Primary Care Physician Name Of Family Doctor: Igor
--- NOTE | 2020-04-10 09:17 | Psychiatric Progress Note ---
Date of Service April 10, 2020 Impression / Recommendations Impression 19-year-old man was admitted as a transfer from the medical service where he had been admitted on 04/04/2020 following a suicide attempt by self poisoning with sodium nitrate or nitrite, after looking it up on the internet and taking a lethal dose. The attempt was planned for 3 - 5 days prior, researching suicide methods online, ordering the chemical, and waiting for it to arrive. He continues to experience suicidal thoughts, triggered by concerns that his planned future may be jeopardized by recent poor grades and/or mental health treatment, but they are decreased in frequency and intensity. He is very motiv ated to convince us that he does not have a mental illness, so it is unclear if his suicide attempt was related to a major depressive episode or not. He reports poor functioning over the past couple of months, which led to poor academic performance and failing several classes, but he attributes this to social isolation and online classes rather than symptoms of depression. He has limited supports locally, but did engage in a brief meeting with his mother and social work yesterday. Unfortunately, the patient hung up the call before details of discharge and safety planning could be discussed. He is working on a plan to return to [facility] for the summer, and we will coordinate with the University regarding academic and support options for him. Inpatient treatment remains medically necessary due to the severity of his suicide attempt and risk for harm to self/suicide if discharged prematurely. (1) Adjustment disorder with mixed anxiety and depressed mood: 04/06/20 -The patient does not seem to meet criteria for major depressive disorder. Instead, the patient reports that he has been having a great deal of difficulty adjusting to the changes that have been brought about by the current COVID-19 pandemic and the local response to it. He says that he had not realized the degree to which he was thriving within the usual academic atmosphere associated with in person classes and active college life until, suddenly, he found that all of his friends had moved back home for the duration and that he was now alone in [place] without a support system. The patient also notes that he had not anticipated difficulty being able to learn through online classes, but indicates that he has been habituated throughout his entire life to learning in classrooms and, to his great surprise, he found that he simply was not able to learn on line. Within this context, he became more anxious and somewhat overwhelmed. He was also having difficulty adjusting to the reality that at some point he was going to have to tell his parents that he had failed and was going to need to repeat the current semester. The context for this is that the parents have been struggling financially to send the patient, and his special needs younger brother to their respective schools and he was having difficulty accepting the reality that he was, in fact, going to have to tell them. The patient is able to independently recognize that his thinking has become somewhat distorted when he thought that he would be doing his parents a favor by sparing them the financial burden of sending him to college. He also acknowledges that he feels that part of him was simply not brave enough to face his family with his failure. He agrees that these are issues that he can work through and explore in individual psychotherapy, during the stay, and following hospitalization on an outpatient basis. -We discussed the possibility of the use of a selective serotonin reuptake inhibitor, probably more for anxiety than for depression. The patient says that he does not currently feel depressed, and was really not aware of feeling depressed until approximately a week before the suicide attempt when he came to the realization that he was unlikely to pass a number of his courses. Explains that his emotion ran more towards shame and panic than to depression. We discus sed material risks and anticipated benefits of antidepressant medications, and the patient said that he would prefer not to take antidepressant medications at the present time but will consider it for the future. 04/07 -Patient continues to deny residual passive or active wish. Describes remorse for suicidal act and appearing forward-looking. We will continue to monitor over weekend without pharmacologic intervention 04/08 -As above, patient continues to deny perceived ongoing threat of harm to himself however I am concerned that he expressed recurrence of passive wish when contemplating the potential ramifications of his 302 commitment yesterday. He is minimizing this morning with apparent flight to health and continues to decline consideration for pharmacotherapy or outpatient therapy follow-up. He remains at risk for recurrence of self-harm if discharged prematurely within the context of researched and potentially lethal self-harm attempt which ultimately resulted in his current psychiatric hospitalization. 04/09 -Patient continues to deny acute SI, but risk remains as he is not allowed for meeting with his parents, has no local supports and is not sure when he will be able to return to [facility], is minimizing mood symptoms and does not yet have a good plan for dealing with his academic issues. We will continue to encourage a family meeting with parents, a plan for local outpatient supports until he is able to return to [facility], and coordination with [place] regarding his academics. 04/10 - Pt continues to decline medications, stating he has not struggled with depression - maintaining that his stressors are situational - We are encouraging an additional family meeting with his mother today to discuss discharge plans in greater detail - While patient has been consistently denying SI and has been able to express aspects of discharge plans, there are still several topics he has not adequately addressed with staff/parents. Timeline of his return to [facility] remains uncertain as well as what patient will do for support until these travel arrangements can be managed. - Will plan to inform the [place] of discharge plans, and encourage patient to reach out to [facility] for any therapy needs. He is refusing recommendations for local outpatient providers at this time. - 302 expires tomorrow afternoon. While it is felt patient would benefit fr om additional work on his safety plan, it is felt that he will likely not meet criteria for extended involuntary inpatient commitment. Anticipate discharge home tomorrow. (2) Suicide attempt by drug ingestion: Inventory Assets Strengths: Intelligent. Motivated. Future oriented. Cooperative. Personable. Strong family support. Needs: Improved individual coping strategies. Sustained resolution of suicidal thoughts. 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 He lives alone and has no previous psychiatric history. Mr. Roca and was admitted as a transfer from the medical service on 04/06/20 15:18 on a 302 involuntary commitment following a suicide attempt on the morning of 04/04/2020. Chief Complaint "I've been pretty good. Much better than before." Review of Systems Notes Constitutional: denied Cardiovascular: denied Respiratory: denied Gastrointestinal: denied Neurological: denied Psychiatric: denies symptoms other than stated above Total of at least 10 systems reviewed, pertinent positives as above and in HPI. Sleep Information Total Hours of Sleep: 8.25 Sleep Comments: pt appeared to be asleep for about 1/25 hrs during evening shift. pt on q-15 minute checks Meal Information Percent Meal Consumed - Breakfast: 100 Percent Meal Consumed - Lunch: 100 Percent Meal Consumed - Dinner: 100 Subjective Subjective Patient was seen & assessed and interval progress reviewed with nursing and social work. Staff report the patient did participate in a brief meeting with his parents yesterday, but it appears the patient hung up before topics surround discharge and safety planning could be discussed. Will plan to coordinate further with parents today. 302 expires tomorrow afternoon and it is anticipated patient will not meet criteria for further involuntary inpatient psychiatric hospitalization. Anticipate discharge home tomorrow after his discharge/safety plans can be discussed in greater detail. Pt was seen today to assess progress since admission. Pt states that he is doing well, "much better than before." Pt states that his mood has been better "since Thursday" and he denies SI since that time as well. Pt states he had a meeting with his mother today with social work, and more details of his discharge were discussed. Pt is hopeful he will be able to meet with a counselor through [facility] and is agreeable with having a meeting with [facility] to discuss his coursework as well. Pt denies any additional goals at this time. He maintains that he plans to return to [facility] once travel opens again, which he believes may be in the next "10-15 days, as soon as flights open up." In the interim, the patient states he has friends who will be checking in on him and has already communicated a schedule to his parents for the next few weeks (catching up on studies, going to the gym, reading, etc.). Pt maintains that his suicide attempt was related to "a very stressful time, I'm not normally under this amount of pressure." Pt does state "I'm very happy I didn't ." He states he completed his written safety plan and does feel more comfortable reaching out to friends and family in the future if these thoughts should recur. Pt denies other needs or concerns today. We discussed anticipated discharge tomorrow, as his 302 expires in the afternoon. He was agreeable with this and is planning to take the bus back to his apartment. Physical Exam Psychiatric Orientation: alert, oriented x 3 and cooperative (and pleasant) Apperance: appropriately dressed (casually, in hoodie and scrub pants), appropriately groomed and appeared stated age Eye Contact: good eye contact Motor Behavior: steady gait and station and no abnormal motor movements Speech: normal rate/rhythm/volume of speech Affect: euthymic affect and mood congruent with affect Mood: no depressed mood ("much better than before") Thought Process: goal directed thought process, clear/coherent thought process and thought association intact Thought Content: reality based without delusions; not paranoid, no hopelessness and no worthlessness Suicidal Thoughts: denies suicidal thoughts Homicidal Thoughts: denies homicidal thoughts Hallucinations: no auditory hallucinations and no visual hallucinations Cognition: recent memory grossly intact, attention grossly intact and language grossly intact Estimated Intelligence: consistent with education level Insight: + fair insight Judgement: + fair judgement Vital Signs (Past 24 Hours) Last Vital Signs Temp 36.4 C L 04/10/20 06:58 Pulse 87 04/10/20 06:59 Resp 18 04/10/20 06:58 BP 110/74 04/10/20 06:59 Pulse Ox 99 04/06/20 15:28 Results & Data ([facility]) Current Inpatient Medications Current Inpatient Medications: Current Inpatient Medications Acetaminophen (Tylenol) 650 mg PO Q4H PRN PRN Reason: Headache or Minor Fever Stop: 05/06/20 15:31 Al Hydrox/Mg Hydrox/Simethicone (Maalox) 30 ml PO Q4H PRN PRN Reason: GI Upset Stop: 05/06/20 15:31 Bismuth Subsalicylate (Kaopectate) 15 ml PO PRN PRN PRN Reason: Loose Stool Stop: 05/06/20 15:31 Hydroxyzine HCl (Vistaril) 50 mg PO HSZ PRN PRN Reason: Insomnia Stop: 05/06/20 15:31 Hydroxyzine HCl (Vistaril) 25 mg PO Q4H PRN PRN Reason: Anxiety Stop: 05/06/20 15:31 Magnesium Hydroxide (Milk Of Magnesia) 30 ml PO DAILY PRN PRN Reason: Constipation Stop: 05/06/20 15:31 Last Admin: 04/06/20 16:51 Dose: 30 ml Documented by: Sodium Chloride (Delevan Nasal) 1 - 2 sprays NA PRN PRN PRN Reason: Nasal Dryness/Congestion Stop: 05/06/20 15:31 Mental Health & Subst Abuse Tx Therapist Name of Therapist: N/A Mh Teacher Name of Mh Teacher: N/A Post Discharge Appointments Primary Care Physician Name Of Family Doctor: SAJAN Other #1: Name of Aftercare Appointment: [facility] Phone Number of Aftercare Appointment: [phone] Date of Aftercare Appointment: 04/12/20 Time of Aftercare Appointment: 1pm Aftercare Appointment Comment: Shanelle will call
--- NOTE | 2020-04-11 08:50 | Discharge Summary ---
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 He reports no previous contact with the psychiatric community, and indicates that until recently he considered himself to be a happy, well adjusted, and academically successful ("straight A") student. He notes that he had a supportive group of friends and enjoyed studying, achieving academic success, and spending social time with his friends. However, when [employer] canceled all in person classes in January of this year many of his friends either went back to their homes in the [facility], or went back to their home country in order to continue classes online. However, the patient elected to remain in [place], a decision that he tells us that he made because he had a lease on his local apartment, and had not considered that he would begin to feel lonely his entire turtle mountain of friends left town for the foreseeable future. In addition to having great difficulty adjusting to the pursuant social isolation; i.e., living alone in a small apartment with no support group, he had unexpected difficulty with online learning. He notes that this is the first time in his life that he is ever tried to learn in any way other than by in person teaching, and he found the "canned" lectures and related assignments to be confusing difficult to follow. Within this context, his grades began to slip from what he reported to have been "straight A's" to what eventually became failing grades in several of his classes, and "just passing grades" and others. As time went on, he says that he began to panic because he was not accustomed to not being able to achieve top grades and, perhaps because of a certain degree of diffidence, he had trouble asking for help. Last week, he began to realize that he was very likely to fail as many as 3 of his classes and, within that context, over the weekend began to ruminate excessively about the consequences of failing at [employer]. He notes that his parents have been struggling financially in [place] in order to allow him to go to [employer] and to support him while he is here. Also, he has a younger brother who suffers from autism and a number of learning disabilities, and the parents have an additional financial burden associated with sending the special needs brother to special schools. Accordingly, he decided that the best thing for him to do might be to commit suicide so as to not burden his parents with having to pay for him to repeat his current semester at [employer]. More specifically, he said that he dreaded telling them that he had failed and would need to repeat most or all of the courses he had taken the semester because he realized that this would translate into an additional financial burden for his parents were already struggling financially. The patient acknowledges that over the weekend he researched methods of suicide online, and read that an overdose of a readily available chemical, sodium nitrate or sodium nitrite could be taken in lethal doses, and could be ordered online from [employer]. His research also caused him to realize that he would be at risk of regurgitating the lethal chemical unless he took an antiemetic, and so he also secured a supply of an unspecified antiemetic. The patient reports that this past Thursday (04/04/2020) he received his grades and they were, as he feared, failing grades in the classes that he had expected to fail. He called at least 1 of his professors and the professor reportedly said that there was nothing that could be done about it and that the grades had already been submitted. At that point, highly distressed, the patient reportedly took the antiemetic and then proceeded to measure roughly 500 g of the sodium nitrate/nitrite, dissolved at in water, and drank about half of the solution. He notes that despite the antiemetic he felt nauseated and generally unwell. He then telephoned his parents in [facility] in order to "say goodbye." He told his parents what he had done and why, and, fortunately, his parents convinced him to "call 911." His parents also offered him assurances that they understood his situation and were not angry. The patient then promptly called 911 and came to the hospital. Upon arriving at the hospital, the patient was aware that he was experiencing respiratory distress and notes that he became highly frightened that he might actually . He also describes having a crystal-clear realization that he did not want to and that he deeply regretted what he had done. He notes that an IV was started and he was treated with methylene blue. His vital signs remained unstable, and he was monitored in the medical service for 2 days then transferred to psychiatry. He had considered signing and voluntary, but spoke with an manufacturing engineering intern who suggested that he not acknowledge that he had a mental illness by signing a voluntary agreement, and so he was involuntarily confinedalthough he says that he is perfectly willing to cooperate with treatment and only refused to sign the voluntary agreement because he is afraid that this will somehow interfere with him being able to keep a student visa while he finishes undergraduate and then graduate school. Further, the patient reports that he has spoken with his parents several times since being hospitalized. They remain highly supportive, concerned, and have repeatedly told him that, in essence, they do not care about his school or the expense, they just want him alive. The patient has a fairly extensive family in [place], including his parents, all 4 grandparents, and an extended family. His parents are encouraging him to return to [place] [facility] soon as travel from the [facility] to [place] [facility] becomes permissible. While the patient reports that he was having great difficulty adjusting to the various realities that were brought forth by the COVID-19 pandemic and various changes and limitations were made necessary because of it, he does not feel that he has been particularly depressed. He acknowledges feeling very anxious about his grades and the impact that his failure might have on his family and their finances. Physical Exam Psychiatric Orientation: alert and cooperative Apperance: appropriately dressed and appeared stated age Thin male appearing his stated age Eye Contact: good eye contact Motor Behavior: steady gait and station and no abnormal motor movements Speech: normal rate/rhythm/volume of speech Affect: euthymic affect and mood congruent with affect "Pretty good, excited." Thought Process: goal directed thought process Thought Content: reality based without delusions Suicidal Thoughts: denies suicidal thoughts Homicidal Thoughts: denies homicidal thoughts Cognition: recent memory grossly intact, attention grossly intact and language grossly intact Insight: + fair insight Judgement: + fair judgement Vital Signs (Past 24 Hours) Last Vital Signs Temp 36.4 C L 04/11/20 06:51 Pulse 90 04/11/20 06:51 Resp 18 04/11/20 06:51 BP 107/67 04/11/20 06:51 Pulse Ox 99 04/06/20 15:28 Principal Diagnosis Suicide attempt by toxic ingestion Adjustment disorder with depression and anxiety Rule out MDD Psychiatric Data The patient was hospitalized on the U for 5 days, after being hospitalized on the medical service for 2 days due to suicide attempt by toxic ingestion. He initially reported that mood was improved, he was hopeful, and expressed remorse for his suicide attempt. He was adamant that he did not believe he had depression, and was not interested in medication or other treatment modalities, including therapy. He was focused on "not having a mental health diagnosis." He was initially quite focused on his commitment status and how this might prevent him from seeking citizenship in this country in the future. He said he had talked with an manufacturing engineering intern who advised him to be involuntarily committed, but later became worried that this would be "on my record," and would cause problems for him in the future. He was initially very focused on rapid discharge, and refused to allow involvement of his parents. He was able to process the events surrounding his suicide attempt, including social isolation due to the pandemic and poor academic performance, which was unusual for him and intolerable. He had a recurrence of suicidal thoughts over the first couple of days in the hospital in the context of worrying about the impact of psychiatric hospitalization on his future. He did attend groups and therapy, and gradually became more open in treatment, agreed to a family meeting with parents, and 2 separate meetings were held with the certified social workers in health care and use of outboard motorboat operator services. His parents were supportive, and they made a plan for him to return home to [facility] in the next couple of weeks when flights are opened up. His sinceree r also contacted a wood professor in [place] who could provide support to the patient in the interim, and the family requested he follow up with therapy at [facility] while still in the , which the patient agreed to. Referrals were made for therapy and follow-up with the [facility]. Day of Discharge Assessment Staff report the patient is attending and participating in groups, and stating willingness to follow-up with outpatient therapy and with the [facility]. On my assessment, he was seen with ISABELLA Montenegro, with his permission. He states that his mood is "pretty good, excited." He is looking forward to returning home, and has made plans for friends from [place] to come visit before he goes back to [place] [facility]. He is planning to return to [place] in about 10 days when flights resume, and will follow up with the [facility] in the meantime about his academic options. He describes his mood as "definitely improved a lot," and says that it has been stable over the past couple of days, with no suicidal thoughts since the weekend. He reports hopefulness for the future, and plans to return to [employer] when school resumes in the fall. He is able to review his discharge safety plan, and willing to follow-up at [facility] for bridge appointments until he returns home to [facility]. He states willingness to consider antidepressant medication if mood symptoms return. He reports good sleep and appetite, and is performing ADLs independently. Transition of Care Transition Of Care Record: was reviewed with the patient Advance Directives Advance Directives Information Provided: Yes Advance Directives: No Mental Health Advance Directive: No Advance Directives on File: No Living Will: No Power of Kickboxing Instructor: No Advance Directives Reason:: Declines as Mental Health Visit. Risk Factors Assessment Risk factors were mitigated by admission to the inpatient unit, review of treatment options including medications and therapy, referral for outpatient therapy, multiple family meetings with his parents in [place] [facility], coordination of care with the [facility], involving him in groups and therapy, and working on healthy coping skills and his discharge safety plan. He has demonstrated improvement in mood and anxiety, is consistently reporting good mood and denying thoughts of harming himself, has been actively engaged in treatment and able to process his stressors and to make a plan for the immediate future, has not engaged in self-injurious behavior here, is eating and sleeping well, and stating willingness to follow-up with outpatient treatment. He is requesting discharge, and his 302 involuntary commitment expires today. As he is no longer at acute risk of harm to himself, he can be managed as an outpatient at this time. He he does not have risk factors indicating increased risk for harm to others. 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 Instead, the patient reports that he has been having a great deal of difficulty adjusting to the changes that have been brought about by the current COVID-19 pandemic and the local response to it. He says that he had not realized the degree to which he was thriving within the usual academic atmosphere associated with in person classes and active college life until, suddenly, he found that all of his friends had moved back home for the duration and that he was now alone in [place] without a support system. The patient also notes that he had not anticipated difficulty being able to learn through online classes, but indicates that he has been habituated throughout his entire life to learning in classrooms and, to his great surprise, he found that he simply was not able to learn on line. Within this context, he became more anxious and somewhat overwhelmed. He was also having difficulty adjusting to the reality that at some point he was going to have to tell his parents that he had failed and was going to need to repeat the current semester. The context for this is that the parents have been struggling financially to send the patient, and his special needs younger brother to their respective schools and he was having difficulty accepting the reality that he was, in fact, going to have to tell them. The patient is able to independently recognize that his thinking has become somewhat distorted when he thought that he would be doing his parents a favor by sparing them the financial burden of sending him to college. He also acknowledges that he feels that part of him was simply not brave enough to face his family with his failure. He agrees that these are issues that he can work through and explore in individual psychotherapy, during the stay, and following hospitalization on an outpatient basis. -We discussed the possibility of the use of a selective serotonin reuptake inhibitor, probably more for anxiety than for depression. The patient says that he does not currently feel depressed, and was really not aware of feeling depressed until approximately a week before the suicide attempt when he came to the realization that he was unlikely to pass a number of his courses. Explains that his emotion ran more towards shame and panic than to depression. We discussed material risks and anticipated benefits of antidepressant medications, and the patient said that he would prefer not to take antidepressant medications at the present time but will consider it for the future. 04/07 -Patient continues to deny residual passive or active wish. Describes remorse for suicidal act and appearing forward-looking. We will continue to monitor over weekend without pharmacologic intervention 04/08 -As above, patient continues to deny perceived ongoing threat of harm to himself however I am concerned that he expressed recurrence of passive wish when contemplating the potential ramifications of his 302 commitment yesterday. He is minimizing this morning with apparent flight to health and continues to decline consideration for pharmacotherapy or outpatient therapy follow-up. He remains at risk for recurrence of self-harm if discharged prematurely within the context of researched and potentially lethal self-harm attempt which ultimately resulted in his current psychiatric hospitalization. 04/09 -Patient continues to deny acute SI, but risk remains as he is not allowed for meeting with his parents, has no local supports and is not sure when he will be able to return to [place] [facility], is minimizing mood symptoms and does not yet have a good plan for dealing with his academic issues. We will continue to encourage a family meeting with parents, a plan for local outpatient supports until he is able to return to [facility], and coordination with [facility] regarding his academics. 04/10 - Pt continues to decline medications, stating he has not struggled with depression - maintaining that his stressors are situational - We are encouraging an additional family meeting with his mother today to discuss discharge plans in greater detail - While patient has been consistently denying SI and has been able to express aspects of discharge plans, there are still several topics he has not adequately addressed with staff/parents. Timeline of his return to [facility] remains uncertain as well as what patient will do for support until these travel arrangements can be managed. - Will plan to inform the [facility] of discharge plans, and encourage patient to reach out to [facility] for any therapy needs. He is refusing recommendations for local outpatient providers at this time. - 302 expires tomorrow afternoon. While it is felt patient would benefit from additional work on his safety plan, it is felt that he will likely not meet criteria for extended involuntary inpatient commitment. Anticipate discharge home tomorrow. (2) Suicide attempt by drug ingestion: Mental Health & Subst Abuse Tx Therapist Name of Therapist: [facility] Comp Field Case Manager Name of Comp Field Case Manager: N/A Post Discharge Appointments Primary Care Physician Name Of Family Doctor: [facility] Smoking Cessation Counseling Tobacco Cessation Medication Prescribed at Discharge: Not Applicable/Non-Smoker Contact Information Discharge Discharge Address: [address] [place] [address] Contact Information Comment: Will return to [place] when flights open up Discharge Plan Discharge Items Patient Disposition: Home - Self-Care Reason For Visit: DEPRESSION NOS Discharge Diagnosis: Suicide attempt by toxic ingestion Adjustment disorder Activity: Per Instructions section Non-emergency contact: Therapist Call non-emergency contact if: your symptoms worsen Follow-up/Referrals: [facility] [Primary Care Provider] - Diet: Vegan (no animal product) Addtl Attending Provider Instructions: SPECIAL CARE INSTRUCTIONS: 1. Follow through with your scheduled aftercare appointments. If unable to keep an appointment, please call to reschedule. We recommended follow up with an outpatient psychiatrist, which you declined. You have been referred to [facility] at your request for therapy. 2. You are not on prescribed medication. If mood worsens, you may meet criteria for major depression and may benefit from medication. 3. Utilize new healthy coping skills, anger management skills, and stress management skills learned during your hospitalization. Journal feelings and process them with a support person. Identify stressors or situations that may result in relapse, deterioration or inappropriate behaviors and develop a plan to deal with those issues. 4. If your coping skills are ineffective and you are in crisis, contact your outpatient providers for direction. If unable to reach your providers, please call the CAN HELP LINE AT or go to the closest Emergency Room. 5. Avoid alcohol and un-prescribed drugs. 6. You have been provided with the Mental Health Advance Directives Pamphlet for your review. AFTERCARE APPOINTMENTS: * Please call your insurance company prior to your scheduled appointment to confirm your aftercare providers are covered. Take your insurance information to your appointments. WHO TO CALL AND WHEN: Medical Emergencies: For questions or emergencies related to your hospital stay, please contact the Inpatient Behavioral Health Unit at [phone]. A circuit rider is on-call 15/06 for the Behavioral Health Unit for emergencies At any time you feel your situation is an emergency, you may also call 911 immediately. Your Doctors Instructions noted above were prepared by provider Park Green MD. Pending Studies at Discharge: No Stand-Alone Forms: [facility] Sm[facility] Cess[facility] Medications and DC Order Prescriptions: No Action No Known Home Medications RF: 0 Discharge Orders: Discharge Order (Routine); Ordered 04/11/20 Ordered By: Park Green Admission Data Admit Date/Time: 04/06/20 15:18 Attending Provider: Park Green Admit Provider: Gregory Morel Primary Care Provider: [facility] Other Interventions: Discharge Summary Assessment (RN) Last Done: 04/11/20 09:53 PSY Interdisciplinary Discharge Planning Last Done: 04/11/20 10:41 DC Date/Time DO NOT enter until pt leaves facility: 04/11/20 11:11 Coding Level of Care Code 23794 D/C day mgmt > 30 min Diagnoses Adjustment disorder with mixed anxiety and depressed mood F43.23 Suicide attempt by drug ingestion T50.902A
== END 2020-04-11 11:11 | disposition home or self-care (01) | DRG 882 ==
LOC: 3S 15:18 → SUATTDRO 15:18

== ENCOUNTER 2021-12-11 15:48 | Inpatient (IN) ==
[2021-12-11 16:43] LABS: Basophils # (auto) 0.01 K/uL (0-0.2); Basophils % (auto) 0.2 %; Eosinophils # (auto) 0.12 K/uL (0-0.5); Eosinophils % (auto) 2.3 %; Hematocrit (blood only) 44.9 % (42-52); Hemoglobin 15.2 g/dL (14.0-18.0); Lymphocytes % (auto) 48.1 %; Mean Corpuscular Hemoglobin 30.8 pg (25-34); Mean Corpuscular Hgb Conc 33.9 g/dL (32-36); Mean Corpuscular Volume 90.9 fL (80-100); Mean Platelet Volume 11.1 fL (7.4-10.4); Monocytes # (auto) 0.51 K/uL (0.11-0.59); Monocytes % (auto) 9.8 %; Neutrophils # (auto) 2.06 K/uL (1.4-6.5); Neutrophils % (auto) 39.6 %; Platelet Count 288 K/uL (130-400); RDW Coefficient of Variation 13.3 % (11.5-14.5); RDW Standard Deviation 44.1 fL (36.4-46.3); Red Blood Count 4.94 M/uL (4.7-6.1)
[2021-12-11 17:06] LABS: Acetaminophen < 3 ug/ml (10-30); Salicylate < 3.0 mg/dl (3.0-30)
[2021-12-11 17:07] LABS: Alanine Aminotransferase 8 U/L (7-52); Albumin Globulin Ratio 1.7 (0.9-2); Albumin Level 4.7 gm/dl (3.4-5.0); Alkaline Phosphatase 70 U/L (34-104); Anion Gap 6 (3-11); Aspartate Aminotransferase 18 U/L (13-39); BUN Creatinine Ratio 21.4 (10-20); Bilirubin,Total 1.5 mg/dl (0.2-1.0); Blood Urea Nitrogen 15 mg/dl (6-23); Calcium 9.3 mg/dl (8.5-10.1); Carbon Dioxide 27 mmol/L (21-32); Chloride 106 mmol/L (98-107); Est GFR (African American) > 150.0 ml/min; Globulin 2.7 gm/dl (2.5-4.0); Glucose 85 mg/dl (70-99(Fasting)); Potassium 4.1 mmol/L (3.5-5.1); Sodium 139 mmol/L (136-145); Total Protein 7.4 gm/dl (6.0-8.3)
--- NOTE | 2021-12-11 17:09 | Emergency Department Note ---
History of Present Illness General Chief complaint: Mental Health Evaluation Stated complaint: mental health eval Time Seen by Provider: 12/11/21 16:00 Source: patient Mode of arrival: ambulatory Limitations: no limitations History of Present Illness Provider complaint: Mental health evaluation This is a 21-year-old male presents emergency department for mental health evaluation. Patient states he has had worsening depression recently in part related to academic difficulties and decline in his grades. Patient also states he has had trouble focusing. Patient admits to recent suicidal ideation. Patient states he has been using alcohol to help treat his depression, and does note that when he is not using alcohol his depression feels worse. Patient does have a prior history of suicide attempt and subsequent inpatient mental health treatment. Patient denies HI, paranoia, or hallucinations. Patient denies any medications. Patient denies any recent recreational drug use. He has no concern for recent injury or illness. Pt seen during a time of high acuity and national emergency pandemic while weari ng PPE. Home Medications Medication Instructions Recorded Confirmed Type No Known Home Medications 04/04/20 12/11/21 History Allergies Allergy/AdvReac Type Severity Reaction Status Date / Time No Known Allergies Allergy Verified 12/11/21 17:32 Past Med/Surg History Medical History No significant past medical history Suicide attempt by drug ingestion Surgical History No significant past surgical history Social History Smoking Status: Never smoker Hx Substance Use: No Preferred Language: Divehi Communication Ability: Effective Prehemmer Required: No Beliefs That Will Affect Care: None Current Living Situation: Alone Feels Safe at Home: Yes Assistive Devices: Glasses Review of Systems A total of 10 systems reviewed and were otherwise negative All systems reviewed & are unremarkable except as noted in HPI & below Physical Exam Vital Signs Vital Signs - 24 hr 12/11/21 15:48 12/11/21 15:51 12/11/21 18:46 Temperature 36.1 C L Temperature Source Temporal Artery Scan Pulse Rate 79 Pulse Rate [Left Finger] 88 Pulse Rhythm [Left Finger] Regular Pulse Strength [Left Finger] Normal Respiratory Rate 16 18 16 Respiratory Effort / Characteristics Non-Labored Non-Labored Respiratory Depth Normal Normal Respiratory Pattern Regular Blood Pressure 93/65 L Blood Pressure [Right Arm] 101/64 Blood Pressure Mean 74 Blood Pressure Mean [Right Arm] 76 Pulse Oximetry 99 100 Oxygen Delivery Method Room Air Sepsis Recent Fever Within 48 Hours No Sepsis New/Unexplained Change in Mental Status No Sepsis Action Taken by Nursing No Action Required GENERAL: alert, well appearing, well nourished, no distress, non-toxic EYE EXAM: normal conjunctiva, PERRL and EOM's grossly intact OROPHARYNX: no exudate, no erythema, lips, buccal mucosa, and tongue normal and mucous membranes are moist NECK: supple, no nuchal rigidity, no adenopathy, non-tender LUNGS: Clear to auscultation. Normal chest wall mechanics, no w/r/r HEART: no murmurs, S1 normal and S2 normal ABDOMEN: abdomen soft, non-tender, normo-active bowel sounds, no masses, no rebound or guarding. BACK: Back is symmetrical on inspection and there is no deformity, no midline tenderness, no CVA tenderness. SKIN: no rashes and no bruising UPPER EXTREMITIES: upper extremities are grossly normal. FROM, nml pulses b/l. LOWER EXTREMITIES: No pitting edema. FROM, nml pulses b/l. NEURO EXAM: Normal sensorium, cranial nerves II-XII grossly intact, normal speech, no gross weakness of arms, no gross weakness of legs. Gross sensation intact. Course Course 1901: 3 S evaluating the patient. 193: 201 signed. Administered Medications Hydroxyzine HCl (Hydroxyzine Hcl 25 Mg Tab) 50 mg PO HSZ PRN PRN Reason: Insomnia Stop: 01/10/22 19:31 Last Admin: 12/11/21 22:29 Dose: 50 mg Documented by: [id number] Medical Decision Making Differential Diagnosis Differential diagnoses considered include mood disorder, infection, hypoglycemia, electrolyte abnormalities, cardiac sources, intracerebral event, toxicologic, neurologic, as well as others. Medical Records Attestation: I reviewed the patient's medical records. Home Medications Current Medication List: was personally reviewed by me Laboratory Data Attestation: I reviewed the patient's lab results. Result diagrams: 12/11/21 16:27 12/11/21 16:27 Lab Results 12/11/21 12/11/21 12/11/21 Range/Units 16:27 16:27 16:27 WBC 5.20 (4.8-10.8) K/uL RBC 4.94 (4.7-6.1) M/uL Hgb 15.2 (14.0-18.0) g/dL Hct 44.9 (42-52) % MCV 90.9 (80-100) fL MCH 30.8 (25-34) pg MCHC 33.9 (32-36) g/dL RDW Std Deviation 44.1 (36.4-46.3) fL RDW Coeff of Emanuel 13.3 (11.5-14.5) % Plt Count 288 (130-400) K/uL MPV 11.1 H (7.4-10.4) fL Immature Gran % (Auto) 0.0 % Neut % (Auto) 39.6 % Lymph % (Auto) 48.1 % [place] % (Auto) 9.8 % Eos % (Auto) 2.3 % Baso % (Auto) 0.2 % Neut # (Auto) 2.06 (1.4-6.5) K/uL Lymph # (Auto) 2.50 (1.2-3.4) K/uL [place] # (Auto) 0.51 (0.11-0.59) K/uL Eos # (Auto) 0.12 (0-0.5) K/uL Baso # (Auto) 0.01 (0-0.2) K/uL Immature Gran # (Auto) 0.00 (0.00-0.02) K/uL Sodium 139 (136-145) mmol/L Potassium 4.1 (3.5-5.1) mmol/L Chloride 106 (98-107) mmol/L Carbon Dioxide 27 (21-32) mmol/L Anion Gap 6 (3-11) BUN 15 (6-23) mg/dl Creatinine 0.70 (0.6-1.4) mg/dl Est Cr Clr Drug Dosing 104.0 ml/min Est GFR ( Amer) > 150.0 ml/min Est GFR (Non-Af Amer) 134.0 ml/min BUN/Creatinine Ratio 21.4 H (10-20) Glucose 85 (70-99(Fasting)) mg/dl Calcium 9.3 (8.5-10.1) mg/dl Total Bilirubin 1.5 H (0.2-1.0) mg/dl AST 18 (13-39) U/L ALT 8 (7-52) U/L Alkaline Phosphatase 70 (34-104) U/L Total Protein 7.4 (6.0-8.3) gm/dl Albumin 4.7 (3.4-5.0) gm/dl Globulin 2.7 (2.5-4.0) gm/dl Albumin/Globulin Ratio 1.7 (0.9-2) TSH 4.671 H (0.300-4.500) uIu/ml Free T4 0.84 (0.61-1.60) ng/dl Urine Color Urine Appearance (Clear) Urine pH (4.5-7.5) Ur Specific Millen (1.000-1.030) Urine Protein (Negative) Urine Glucose (UA) (Negative) Urine Ketones (Negative) Urine Blood (Negative) Urine Nitrite (Negative) Urine Bilirubin (Negative) Urine Urobilinogen (Negative) Ur Leukocyte Esterase (Negative) Urine WBC (Auto) (0-5) /hpf Urine RBC (Auto) (0-4) /hpf U Hyaline Cast (Auto) (0-5) /lpf U Epithel Cells (Auto) (0-5) /lpf Urine Bacteria (Auto) (Negative) Salicylates (3.0-30) mg/dl Urine Opiates Screen (Neg) Ur Methadone, Qual (Neg) Acetaminophen (10-30) ug/ml Urine Barbiturates (Neg) Ur Phencyclidine (PCP) (Neg) U Amphetamin/Meth Scrn (Neg) MDMA (Ecstasy) Screen (Neg) U Benzodiazepines Scrn (Neg) Ur Cocaine Metabolite (Neg) U Marijuana (THC) Screen (Neg) Ethyl Alcohol mg/dL (<10.0) mg/dl SARS-CoV-2, RNA, NAAT (NEGATIVE) 12/11/21 12/11/21 12/11/21 Range/Units 16:27 16:27 17:25 WBC (4.8-10.8) K/uL RBC (4.7-6.1) M/uL Hgb (14.0-18.0) g/dL Hct (42-52) % MCV (80-100) fL MCH (25-34) pg MCHC (32-36) g/dL RDW Std Deviation (36.4-46.3) fL RDW Coeff of Emanuel (11.5-14.5) % Plt Count (130-400) K/uL MPV (7.4-10.4) fL Immature Gran % (Auto) % Neut % (Auto) % Lymph % (Auto) % [place] % (Auto) % Eos % (Auto) % Baso % (Auto) % Neut # (Auto) (1.4-6.5) K/uL Lymph # (Auto) (1.2-3.4) K/uL [place] # (Auto) (0.11-0.59) K/uL Eos # (Auto) (0-0.5) K/uL Baso # (Auto) (0-0.2) K/uL Immature Gran # (Auto) (0.00-0.02) K/uL Sodium (136-145) mmol/L Potassium (3.5-5.1) mmol/L Chloride (98-107) mmol/L Carbon Dioxide (21-32) mmol/L Anion Gap (3-11) BUN (6-23) mg/dl Creatinine (0.6-1.4) mg/dl Est Cr Clr Drug Dosing ml/min Est GFR ( Amer) ml/min Est GFR (Non-Af Amer) ml/min BUN/Creatinine Ratio (10-20) Glucose (70-99(Fasting)) mg/dl Calcium (8.5-10.1) mg/dl Total Bilirubin (0.2-1.0) mg/dl AST (13-39) U/L ALT (7-52) U/L Alkaline Phosphatase (34-104) U/L Total Protein (6.0-8.3) gm/dl Albumin (3.4-5.0) gm/dl Globulin (2.5-4.0) gm/dl Albumin/Globulin Ratio (0.9-2) TSH (0.300-4.500) uIu/ml Free T4 (0.61-1.60) ng/dl Urine Color Urine Appearance (Clear) Urine pH (4.5-7.5) Ur Specific Mill[place] (1.000-1.030) Urine Protein (Negative) Urine Glucose (UA) (Negative) Urine Ketones (Negative) Urine Blood (Negative) Urine Nitrite (Negative) Urine Bilirubin (Negative) Urine Urobilinogen (Negative) Ur Leukocyte Esterase (Negative) Urine WBC (Auto) (0-5) /hpf Urine RBC (Auto) (0-4) /hpf U Hyaline Cast (Auto) (0-5) /lpf U Epithel Cells (Auto) (0-5) /lpf Urine Bacteria (Auto) (Negative) Salicylates < 3.0 L (3.0-30) mg/dl Urine Opiates Screen Neg (Neg) Ur Methadone, Qual Neg (Neg) Acetaminophen < 3 L (10-30) ug/ml Urine Barbiturates Neg (Neg) Ur Phencyclidine (PCP) Neg (Neg) U Amphetamin/Meth Scrn Neg (Neg) MDMA (Ecstasy) Screen Neg (Neg) U Benzodiazepines Scrn Neg (Neg) Ur Cocaine Metabolite Neg (Neg) U Marijuana (THC) Screen Neg (Neg) Ethyl Alcohol mg/dL < 10.0 (<10.0) mg/dl SARS-CoV-2, RNA, NAAT (NEGATIVE) 12/11/21 12/11/21 Range/Units 17:25 18:16 WBC (4.8-10.8) K/uL RBC (4.7-6.1) M/uL Hgb (14.0-18.0) g/dL Hct (42-52) % MCV (80-100) fL MCH (25-34) pg MCHC (32-36) g/dL RDW Std Deviation (36.4-46.3) fL RDW Coeff of Emanuel (11.5-14.5) % Plt Count (130-400) K/uL MPV (7.4-10.4) fL Immature Gran % (Auto) % Neut % (Auto) % Lymph % (Auto) % [place] % (Auto) % Eos % (Auto) % Baso % (Auto) % Neut # (Auto) (1.4-6.5) K/uL Lymph # (Auto) (1.2-3.4) K/uL [place] # (Auto) (0.11-0.59) K/uL Eos # (Auto) (0-0.5) K/uL Baso # (Auto) (0-0.2) K/uL Immature Gran # (Auto) (0.00-0.02) K/uL Sodium (136-145) mmol/L Potassium (3.5-5.1) mmol/L Chloride (98-107) mmol/L Carbon Dioxide (21-32) mmol/L Anion Gap (3-11) BUN (6-23) mg/dl Creatinine (0.6-1.4) mg/dl Est Cr Clr Drug Dosing ml/min Est GFR ( Amer) ml/min Est GFR (Non-Af Amer) ml/min BUN/Creatinine Ratio (10-20) Glucose (70-99(Fasting)) mg/dl Calcium (8.5-10.1) mg/dl Total Bilirubin (0.2-1.0) mg/dl AST (13-39) U/L ALT (7-52) U/L Alkaline Phosphatase (34-104) U/L Total Protein (6.0-8.3) gm/dl Albumin (3.4-5.0) gm/dl Globulin (2.5-4.0) gm/dl Albumin/Globulin Ratio (0.9-2) TSH (0.300-4.500) uIu/ml Free T4 (0.61-1.60) ng/dl Urine Color Yellow Urine Appearance Cloudy A (Clear) Urine pH 8.5 H (4.5-7.5) Ur Specific Mill[place] 1.027 (1.000-1.030) Urine Protein Trace H (Negative) Urine Glucose (UA) Negative (Negative) Urine Ketones Negative (Negative) Urine Blood Negative (Negative) Urine Nitrite Negative (Negative) Urine Bilirubin Negative (Negative) Urine Urobilinogen Negative (Negative) Ur Leukocyte Esterase Negative (Negative) Urine WBC (Auto) 1-5 (0-5) /hpf Urine RBC (Auto) 0-4 (0-4) /hpf U Hyaline Cast (Auto) 1-5 (0-5) /lpf U Epithel Cells (Auto) 10-20 H (0-5) /lpf Urine Bacteria (Auto) Negative (Negative) Salicylates (3.0-30) mg/dl Urine Opiates Screen (Neg) Ur Methadone, Qual (Neg) Acetaminophen (10-30) ug/ml Urine Barbiturates (Neg) Ur Phencyclidine (PCP) (Neg) U Amphetamin/Meth Scrn (Neg) MDMA (Ecstasy) Screen (Neg) U Benzodiazepines Scrn (Neg) Ur Cocaine Metabolite (Neg) U Marijuana (THC) Screen (Neg) Ethyl Alcohol mg/dL (<10.0) mg/dl SARS-CoV-2, RNA, NAAT NEGATIVE (NEGATIVE) MDM Narrative Is a 21-year-old male who presents for mental health evaluation. Patient mitts to recent alcohol use as a coping strategy for his depression and thoughts of suicide ideation. Patient does not a prior history of suicide attempt via overdose. Patient seen and evaluated here, referred for 3 S. Patient was accepted to 3 S., 201 signed by me. Patient stable throughout. There are several blood pressures listed that are mildly low, patient with a thin build, however asymptomatic. I suspect he likely has a normally low blood pressure. Patient was encouraged to eat and drink normally. I do not suspect occult infectious or vascular etiology. Impression & Plan Depression, Suicidal ideation, Alcohol abuse Discharge Plan Visit Data Chief Complaint: Mental Health Evaluation Stated Complaint: mental health eval ED Provider: Lilibeth Worley Discharge Problem: Depression, Suicidal ideation, Alcohol abuse Patient Disposition: Admitted As Inpatient Discharge Instructions Interventions: ED Discharge Assessment Last Done: 12/11/21 19:39 Discharge Problem: Depression Qualifiers: Depression Type: unspecified Qualified Code(s): F32.A - Depression, unspecified
[2021-12-11 17:27] LABS: Thyroid Stimulating Hormone 4.671 uIu/ml (0.300-4.500)
[2021-12-11 17:46] LABS: Appearance Urine Cloudy (Clear); Bacteria Urine Automated Negative (Negative); Bilirubin Urine Negative (Negative); Blood Urine Negative (Negative); Color Urine Yellow; Glucose Urine UA Negative (Negative); Ketones Urine Negative (Negative); Leukocyte Esterase Urine Negative (Negative); Nitrite Urine Negative (Negative); RBC Urine Automated 0-4 /hpf (0-4); Specific Gravity Urine 1.027 (1.000-1.030); Urobilinogen Urine Negative (Negative); pH Urine 8.5 (4.5-7.5)
[2021-12-11 17:59] LABS: Protein Urine Trace (Negative)
[2021-12-11 18:02] LABS: T4 Free Thyroxine 0.84 ng/dl (0.61-1.60)
[2021-12-11 18:07] LABS: Amphetamines+Metham, Urine Neg (Neg); Barbiturates, Urine Neg (Neg); Benzodiazepine, Urine Neg (Neg); Cocaine, Urine Neg (Neg); MDMA (Ecstacy), Urine Neg (Neg); Methadone, Urine Neg (Neg); Opiate, Urine Neg (Neg); Phencyclidine, Urine Neg (Neg)
[2021-12-11] MEDS ORDERED: MAGNESIUM HYDROXIDE SUSP 30 ML UDC PO PRN (19:32)
[2021-12-11] MEDS ORDERED: ACETAMINOPHEN 325 MG TAB PO PRN (19:32)
[2021-12-11] MEDS ORDERED: ALUMINUM/MAGNESIUM SUSP 30 ML UDC PO PRN (19:32)
[2021-12-11] MEDS ORDERED: hydrOXYzine HCl 25 MG TAB PO PRN ×2 (19:32)
[2021-12-11] MEDS ORDERED: SODIUM CHLORIDE 0.65% NA SOLN 45 ML (OCEAN) PRN (19:32)
[2021-12-11] MEDS ORDERED: BISMUTH SUBSALICYLATE LIQD 236 ML PO PRN (19:32)
[2021-12-11 19:41] VITALS: O2SAT 98
--- NOTE | 2021-12-12 10:08 | History & Physical ---
Date of Service December 12, 2021 Impression / Recommendations Impression 21 yo male, international student, with a prior suicide attempt, presented with worsening mood, increase in ETOH use, and recurrent thoughts to OD on sodium nitrate. (1) Depression: Depression Type: unspecified Qualified Code(s): F32.A - Depression, unspecified (2) Alcohol abuse: (3) TSH elevation: The patient was admitted to the [facility] ([facility] mental health unit) on q15 min checks (behavioral with suicide precautions) for safety. The patient will participate in group, recreational, and milieu therapies and will be offered additional individual and family sessions as clinically appropriate. He is not interested in an antidepressant at this time as focussed on possible dx of ADHD "explaining everything". He does note benefit from Vistaril yesterday pm and would like to continue it scheduled to reset his sleep. He feels not drinking will also help his mood to improve. Discussed that ADHD dx best made when mood more stable and with psychological testing and that we can provide referrals but cannot be done while inpatient. The patient's AUDIT score suggests problematic drinking ([place] WHO). Brief intervention was offered and accepted. Intervention was greater than 5 min in length and included assessing readiness to quit, advice on how to reduce or abstain from alcohol, and to set a specific goal for this hospitalization. pitch worker will also assist in anticipating barriers to sobriety and in problem-solving for solutions to those problems while arranging for referral to appropriate treatment. The patient is in contemplation stage with regards to transtheoretical model of change. The patient is advised to decrease alcohol consumption due to depressant effects and risk of interaction with prescription medications. The patient feels it's related to his mood rather than separate substance use disorder but will be provided with recovery materials to continue to educate self on how to cope with their condition without drinking. A thyroid panel will need repeated in 6 weeks. Inventory Assets Strengths: intelligent, help seeking Needs: outpatient therapy and medication management, plan to manage academics Risk Factors Assessment Male: Yes : No Do You Have Access To A Gun?: No Health Problems: No Mental Health Diagnoses: Yes Previous Attempt: Yes Family History of Suicide: No Previous Psychiatric Hospitalization: Yes Protective Factors Assessment : No Employed: No Stable Relationships: Yes Psychiatric History Identifying Data KYLE ROCA is a 21-year-old [place] male, [employer] student, has a history of suicide attempt in 2019, and was admitted on 12/11/21 19:33 on a 201 voluntary commitment for . Chief Complaint "I need help with my sleep and focus". History of Present Illness The patient has not been doing well academically and lost hope/started missing more class. He reports return of his depression several weeks ago. To cope and sleep he has been drinking EToh--4-5 shots of whiskey a day for the past 2 weeks, reportedly at the encouragement of his friends. He has DFA and also disrupted sleep; he reports sleeping about 5 hrs/night. Appetite is OK but concentration toward classes is poor and he became increasingly hopefuless in the past 2 days, thinking about purchasing sodium nitrate again. A family friend talked him out of it. He was hospitalized medically in March 2020 after a suicide attempt with sodium nitrate and then transferred to the inpatient unit when he was medically cleared. He did not want medication at that time but is now more receptive of it. He did not follow up with therapy recommendations after hospital discharge and remains resistant to therapy. He states that he was not depressed last semester but struggled with being distracted and off task, particularly "addicted to social media" and constantly checking his phone. He reports some symptoms in elementary school and states they predated the onset of his depression. He is aware that Etoh use has had a negative impact on his mood but worries about changing his peer group. He doesn't feel they are problematic drinkers but they do watch alot of football and they have helped him feel more "N[place]ian". He reports they use MJ regularly but he does not but worries about not drinking if with his peer group. Past Psychiatric History Current Psychiatric Diagnosis: MDD Outpatient Services: none Previous Psych Admissions: [facility] 04/11 Do You Have Access To A Gun?: No History of Previous Suicide Attempt: Yes Describe Attempts in the Past: OD (sodium nitrate, required medical hospitalization) Past Medication Trials: none Allergies Allergy/AdvReac Type Severity Reaction Status Date / Time No Known Allergies Allergy Verified 12/11/21 17:32 Home Medications Medication Instructions Recorded Confirmed Type No Known Home Medications 04/04/20 12/11/21 History Family History Family History of: Other-List under Comment (younger brother with autism) Alcohol History Hx of Alcohol Use Over the Past 12 Months: Yes (4-5 hsot whiskey per day past two weeks) AUDIT Total Score: 14 Smoking Use Have You Smoked or Used Tobacco Products in the Last 30 Days: No Smoking Status: Never smoker Substance History Hx of Prescription Med Misuse Over the Past 12 Months: No Hx of Over the Counter Med Misuse Over the Past 12 Months: No Hx of Inhalent Misuse Over the Past 12 Months: No Hx of Organic Substance Use Over the Past 12 Months: No Hx of Illegal Substances/Street Drug Use Over Past 12 Months: No Problems as a Result of Past Substance Use: Other Problems as a Result of Past Substance Use Comments: poor grades Personal History Living Arrangements: Apartment Born In: Reports that he was born and raised near [facility] by both parents. Highest Grade Completed: Some College ([employer]) Employment Status: Student Marital Status: Single Number Of Children: 0 Beliefs That Will Affect Care: None Current Legal Problems: No Hx Legal Problems: No Hx Traumatic Life Events: No Patient History Medical History No significant past medical history Suicide attempt by drug ingestion Surgical History No significant past surgical history Social History Smoking Status: Never smoker Hx Substance Use: No Preferred Language: Thai Communication Ability: Effective Presiding Steward Required: No Beliefs That Will Affect Care: None Current Living Situation: Alone Feels Safe at Home: Yes Assistive Devices: Glasses Review of Systems Review of Systems: All systems reviewed & are unremarkable except as noted in HPI & below Physical Exam Psychiatric: Orientation: alert and oriented x 3 Apperance: appropriately dressed and appropriately groomed Eye Contact: good eye contact Motor Behavior: no abnormal motor movements Speech: normal rate/rhythm/volume of speech Affect: + depressed affect Mood: + depressed mood Thought Process: goal directed thought process Thought Content: reality based without delusions Suicidal Thoughts: denies suicidal intent; + reports suicidal thoughts and + reports suicidal plan Homicidal Thoughts: denies homicidal thoughts Hallucinations: no auditory hallucinations and no visual hallucinations Cognition: attention grossly intact and language grossly intact Estimated Intelligence: consistent with education level Insight: + limited insight Judgement: + limited judgement Vital Signs (Past 24 Hours): Last Vital Signs Temp 36.4 C L 12/12/21 06:30 Pulse 86 12/12/21 06:31 Resp 16 12/12/21 06:30 BP 92/65 L 12/12/21 06:31 Pulse Ox 98 12/11/21 19:39 Exam Statement: A physical exam was performed in the ED by Dr. Worley for the purposes of medical clearance. I accept that physical as correct and adequate for the purposes of the inpatient physical exam. Results & Data ([facility]) Laboratory Results Laboratory Results - last 24 hr 12/11/21 12/11/21 12/11/21 16:27 16:27 16:27 WBC 5.20 RBC 4.94 Hgb 15.2 Hct 44.9 MCV 90.9 MCH 30.8 MCHC 33.9 RDW Std Deviation 44.1 RDW Coeff of Emanuel 13.3 Plt Count 288 MPV 11.1 H Immature Gran % (Auto) 0.0 Neut % (Auto) 39.6 Lymph % (Auto) 48.1 [place] % (Auto) 9.8 Eos % (Auto) 2.3 Baso % (Auto) 0.2 Neut # (Auto) 2.06 Lymph # (Auto) 2.50 [place] # (Auto) 0.51 Eos # (Auto) 0.12 Baso # (Auto) 0.01 Immature Gran # (Auto) 0.00 Sodium 139 Potassium 4.1 Chloride 106 Carbon Dioxide 27 Anion Gap 6 BUN 15 Creatinine 0.70 Est Cr Clr Drug Dosing 104.0 Est GFR ( Amer) > 150.0 Est GFR (Non-Af Amer) 134.0 BUN/Creatinine Ratio 21.4 H Glucose 85 Calcium 9.3 Total Bilirubin 1.5 H AST 18 ALT 8 Alkaline Phosphatase 70 Total Protein 7.4 Albumin 4.7 Globulin 2.7 Albumin/Globulin Ratio 1.7 TSH 4.671 H Free T4 0.84 Urine Color Urine Appearance Urine pH Ur Specific [place] Urine Protein Urine Glucose (UA) Urine Ketones Urine Blood Urine Nitrite Urine Bilirubin Urine Urobilinogen Ur Leukocyte Esterase Urine WBC (Auto) Urine RBC (Auto) U Hyaline Cast (Auto) U Epithel Cells (Auto) Urine Bacteria (Auto) Salicylates Urine Opiates Screen Ur Methadone, Qual Acetaminophen Urine Barbiturates Ur Phencyclidine (PCP) U Amphetamin/Meth Scrn MDMA (Ecstasy) Screen U Benzodiazepines Scrn Ur Cocaine Metabolite U Marijuana (THC) Screen Ethyl Alcohol mg/dL SARS-CoV-2, RNA, NAAT 12/11/21 12/11/21 12/11/21 16:27 16:27 17:25 WBC RBC Hgb Hct MCV MCH MCHC RDW Std Deviation RDW Coeff of Emanuel Plt Count MPV Immature Gran % (Auto) Neut % (Auto) Lymph % (Auto) [place] % (Auto) Eos % (Auto) Baso % (Auto) Neut # (Auto) Lymph # (Auto) [place] # (Auto) Eos # (Auto) Baso # (Auto) Immature Gran # (Auto) Sodium Potassium Chloride Carbon Dioxide Anion Gap BUN Creatinine Est Cr Clr Drug Dosing Est GFR ( Amer) Est GFR (Non-Af Amer) BUN/Creatinine Ratio Glucose Calcium Total Bilirubin AST ALT Alkaline Phosphatase Total Protein Albumin Globulin Albumin/Globulin Ratio TSH Free T4 Urine Color Urine Appearance Urine pH Ur Specific [place] Urine Protein Urine Glucose (UA) Urine Ketones Urine Blood Urine Nitrite Urine Bilirubin Urine Urobilinogen Ur Leukocyte Esterase Urine WBC (Auto) Urine RBC (Auto) U Hyaline Cast (Auto) U Epithel Cells (Auto) Urine Bacteria (Auto) Salicylates < 3.0 L Urine Opiates Screen Neg Ur Methadone, Qual Neg Acetaminophen < 3 L Urine Barbiturates Neg Ur Phencyclidine (PCP) Neg U Amphetamin/Meth Scrn Neg MDMA (Ecstasy) Screen Neg U Benzodiazepines Scrn Neg Ur Cocaine Metabolite Neg U Marijuana (THC) Screen Neg Ethyl Alcohol mg/dL < 10.0 SARS-CoV-2, RNA, NAAT 12/11/21 12/11/21 17:25 18:16 WBC RBC Hgb Hct MCV MCH MCHC RDW Std Deviation RDW Coeff of Emanuel Plt Count MPV Immature Gran % (Auto) Neut % (Auto) Lymph % (Auto) [place] % (Auto) Eos % (Auto) Baso % (Auto) Neut # (Auto) Lymph # (Auto) [place] # (Auto) Eos # (Auto) Baso # (Auto) Immature Gran # (Auto) Sodium Potassium Chloride Carbon Dioxide Anion Gap BUN Creatinine Est Cr Clr Drug Dosing Est GFR ( Amer) Est GFR (Non-Af Amer) BUN/Creatinine Ratio Glucose Calcium Total Bilirubin AST ALT Alkaline Phosphatase Total Protein Albumin Globulin Albumin/Globulin Ratio TSH Free T4 Urine Color Yellow Urine Appearance Cloudy A Urine pH 8.5 H Ur Specific [place] 1.027 Urine Protein Trace H Urine Glucose (UA) Negative Urine Ketones Negative Urine Blood Negative Urine Nitrite Negative Urine Bilirubin Negative Urine Urobilinogen Negative Ur Leukocyte Esterase Negative Urine WBC (Auto) 1-5 Urine RBC (Auto) 0-4 U Hyaline Cast (Auto) 1-5 U Epithel Cells (Auto) 10-20 H Urine Bacteria (Auto) Negative Salicylates Urine Opiates Screen Ur Methadone, Qual Acetaminophen Urine Barbiturates Ur Phencyclidine (PCP) U Amphetamin/Meth Scrn MDMA (Ecstasy) Screen U Benzodiazepines Scrn Ur Cocaine Metabolite U Marijuana (THC) Screen Ethyl Alcohol mg/dL SARS-CoV-2, RNA, NAAT NEGATIVE Current Inpatient Medications Current Inpatient Medications: Current Inpatient Medications Acetaminophen (Acetaminophen 325 Mg Tab) 650 mg PO Q4H PRN PRN Reason: Headache or Minor Fever Stop: 01/10/22 19:31 Al Hydrox/Mg Hydrox/Simethicone (Aluminum/Magnesium Susp 30 Ml Udc) 30 ml PO Q4H PRN PRN Reason: GI Upset Stop: 01/10/22 19:31 Bismuth Subsalicylate (Bismuth Subsalicylate Liqd 236 Ml) 15 ml PO PRN PRN PRN Reason: Loose Stool Stop: 01/10/22 19:31 Hydroxyzine HCl (Hydroxyzine Hcl 25 Mg Tab) 50 mg PO HSZ PRN PRN Reason: Insomnia Stop: 01/10/22 19:31 Last Admin: 12/11/21 22:29 Dose: 50 mg Documented by: Hydroxyzine HCl (Hydroxyzine Hcl 25 Mg Tab) 25 mg PO Q4H PRN PRN Reason: Anxiety Stop: 01/10/22 19:31 Magnesium Hydroxide (Magnesium Hydroxide Susp 30 Ml Udc) 30 ml PO DAILY PRN PRN Reason: Constipation Stop: 01/10/22 19:31 Sodium Chloride (Sodium Chloride 0.65% Na Soln 45 Ml ([place])) 1 - 2 sprays NA PRN PRN PRN Reason: Nasal Dryness/Congestion Stop: 01/10/22 19:31
[2021-12-12] MEDS ORDERED: hydrOXYzine HCl 25 MG TAB PO SCH (22:00)
[2021-12-13 06:53] VITALS: TEMP 97.7
--- NOTE | 2021-12-13 08:34 | Discharge Summary ---
Date of Service December 13, 2021 History of Present Illness The patient has not been doing well academically and lost hope/started missing more class. He reports return of his depression several weeks ago. To cope and sleep he has been drinking EToh--4-5 shots of whiskey a day for the past 2 weeks, reportedly at the encouragement of his friends. He has DFA and also disrupted sleep; he reports sleeping about 5 hrs/night. Appetite is OK but concentration toward classes is poor and he became increasingly hopefuless in the past 2 days, thinking about purchasing sodium nitrate again. A family friend talked him out of it. He was hospitalized medically in March 2020 after a suicide attempt with sodium nitrate and then transferred to the inpatient unit when he was medically cleared. He did not want medication at that time but is now more receptive of it. He did not follow up with therapy recommendations after hospital discharge and remains resistant to therapy. He states that he was not depressed last semester but struggled with being distracted and off task, particularly "addicted to social media" and constantly checking his phone. He reports some symptoms in elementary school and states they predated the onset of his depression. He is aware that Etoh use has had a negative impact on his mood but worries about changing his peer group. He doesn't feel they are problematic drinkers but they do watch alot of football and they have helped him feel more "[place]". He reports they use MJ regularly but he does not but worries about not drinking if with his peer group. Physical Exam Vital Signs (Past 24 Hours) Last Vital Signs Temp 36.5 C 12/13/21 06:51 Pulse 79 12/13/21 06:52 Resp 16 12/13/21 06:51 BP 100/67 12/13/21 06:52 Pulse Ox 98 12/11/21 19:39 Psychiatric Data See daily stay summary. In short, safety was maintained and the patient was cooperative with care. Medication changes included [] and they tolerated this well. A family session was [held] and safety plan was completed prior to discharge. Day of Discharge Assessment Today the patient voices readiness for discharge. They note improvement in mood and deny thoughts to harm self or others. Thoughts remain organized and they are improved from admission. There is no evidence of psychosis. They agree to take mediations as prescribed and keep follow-up appointments. They are stable for discharge to outpatient level of care. Advance Directives Advance Directives Information Provided: Yes Advance Directives: No Mental Health Advance Directive: No Advance Directives on File: No Living Will: No Power of Seismograph Computer: No Advance Directives Reason:: Declines as Mental Health Visit. Risk Factors Assessment Male: Yes : No Do You Have Access To A Gun?: No Health Problems: No Mental Health Diagnoses: Yes Previous Attempt: Yes Family History of Suicide: No Previous Psychiatric Hospitalization: Yes Protective Factors Assessment : No Employed: No Stable Relationships: Yes Discharge Data Lab Results 12/11/21 12/11/21 12/11/21 16:27 16:27 16:27 WBC 5.20 RBC 4.94 Hgb 15.2 Hct 44.9 MCV 90.9 MCH 30.8 MCHC 33.9 RDW Std Deviation 44.1 RDW Coeff of Emanuel 13.3 Plt Count 288 MPV 11.1 H Immature Gran % (Auto) 0.0 Neut % (Auto) 39.6 Lymph % (Auto) 48.1 [place] % (Auto) 9.8 Eos % (Auto) 2.3 Baso % (Auto) 0.2 Neut # (Auto) 2.06 Lymph # (Auto) 2.50 [place] # (Auto) 0.51 Eos # (Auto) 0.12 Baso # (Auto) 0.01 Immature Gran # (Auto) 0.00 Sodium 139 Potassium 4.1 Chloride 106 Carbon Dioxide 27 Anion Gap 6 BUN 15 Creatinine 0.70 Est Cr Clr Drug Dosing 104.0 Est GFR ( Amer) > 150.0 Est GFR (Non-Af Amer) 134.0 BUN/Creatinine Ratio 21.4 H Glucose 85 Calcium 9.3 Total Bilirubin 1.5 H AST 18 ALT 8 Alkaline Phosphatase 70 Total Protein 7.4 Albumin 4.7 Globulin 2.7 Albumin/Globulin Ratio 1.7 TSH 4.671 H Free T4 0.84 Urine Color Urine Appearance Urine pH Ur Specific [place] Urine Protein Urine Glucose (UA) Urine Ketones Urine Blood Urine Nitrite Urine Bilirubin Urine Urobilinogen Ur Leukocyte Esterase Urine WBC (Auto) Urine RBC (Auto) U Hyaline Cast (Auto) U Epithel Cells (Auto) Urine Bacteria (Auto) Salicylates Urine Opiates Screen Ur Methadone, Qual Acetaminophen Urine Barbiturates Ur Phencyclidine (PCP) U Amphetamin/Meth Scrn MDMA (Ecstasy) Screen U Benzodiazepines Scrn Ur Cocaine Metabolite U Marijuana (THC) Screen Ethyl Alcohol mg/dL SARS-CoV-2, RNA, NAAT 12/11/21 12/11/21 12/11/21 16:27 16:27 17:25 WBC RBC Hgb Hct MCV MCH MCHC RDW Std Deviation RDW Coeff of Emanuel Plt Count MPV Immature Gran % (Auto) Neut % (Auto) Lymph % (Auto) [place] % (Auto) Eos % (Auto) Baso % (Auto) Neut # (Auto) Lymph # (Auto) [place] # (Auto) Eos # (Auto) Baso # (Auto) Immature Gran # (Auto) Sodium Potassium Chloride Carbon Dioxide Anion Gap BUN Creatinine Est Cr Clr Drug Dosing Est GFR ( Amer) Est GFR (Non-Af Amer) BUN/Creatinine Ratio Glucose Calcium Total Bilirubin AST ALT Alkaline Phosphatase Total Protein Albumin Globulin Albumin/Globulin Ratio TSH Free T4 Urine Color Urine Appearance Urine pH Ur Specific [place] Urine Protein Urine Glucose (UA) Urine Ketones Urine Blood Urine Nitrite Urine Bilirubin Urine Urobilinogen Ur Leukocyte Esterase Urine WBC (Auto) Urine RBC (Auto) U Hyaline Cast (Auto) U Epithel Cells (Auto) Urine Bacteria (Auto) Salicylates < 3.0 L Urine Opiates Screen Neg Ur Methadone, Qual Neg Acetaminophen < 3 L Urine Barbiturates Neg Ur Phencyclidine (PCP) Neg U Amphetamin/Meth Scrn Neg MDMA (Ecstasy) Screen Neg U Benzodiazepines Scrn Neg Ur Cocaine Metabolite Neg U Marijuana (THC) Screen Neg Ethyl Alcohol mg/dL < 10.0 SARS-CoV-2, RNA, NAAT 12/11/21 12/11/21 17:25 18:16 WBC RBC Hgb Hct MCV MCH MCHC RDW Std Deviation RDW Coeff of Emanuel Plt Count MPV Immature Gran % (Auto) Neut % (Auto) Lymph % (Auto) [place] % (Auto) Eos % (Auto) Baso % (Auto) Neut # (Auto) Lymph # (Auto) [place] # (Auto) Eos # (Auto) Baso # (Auto) Immature Gran # (Auto) Sodium Potassium Chloride Carbon Dioxide Anion Gap BUN Creatinine Est Cr Clr Drug Dosing Est GFR ( Amer) Est GFR (Non-Af Amer) BUN/Creatinine Ratio Glucose Calcium Total Bilirubin AST ALT Alkaline Phosphatase Total Protein Albumin Globulin Albumin/Globulin Ratio TSH Free T4 Urine Color Yellow Urine Appearance Cloudy A Urine pH 8.5 H Ur Specific [place] 1.027 Urine Protein Trace H Urine Glucose (UA) Negative Urine Ketones Negative Urine Blood Negative Urine Nitrite Negative Urine Bilirubin Negative Urine Urobilinogen Negative Ur Leukocyte Esterase Negative Urine WBC (Auto) 1-5 Urine RBC (Auto) 0-4 U Hyaline Cast (Auto) 1-5 U Epithel Cells (Auto) 10-20 H Urine Bacteria (Auto) Negative Salicylates Urine Opiates Screen Ur Methadone, Qual Acetaminophen Urine Barbiturates Ur Phencyclidine (PCP) U Amphetamin/Meth Scrn MDMA (Ecstasy) Screen U Benzodiazepines Scrn Ur Cocaine Metabolite U Marijuana (THC) Screen Ethyl Alcohol mg/dL SARS-CoV-2, RNA, NAAT NEGATIVE Mental Health & Subst Abuse Tx Therapist Name of Therapist: None Machine Design Teacher Name of Machine Design Teacher: None Post Discharge Appointments Primary Care Physician Name Of Family Doctor: None Discharge Plan Discharge Items Reason For Visit: MDD Follow-up/Referrals: [facility] [Primary Care Provider] - Medications and DC Order Prescriptions: No Action No Known Home Medications RF: 0 Admission Data Admit Date/Time: 12/11/21 19:33 Attending Provider: Kamala Mcnally Admit Provider: Kamala Mcnally Primary Care Provider: [facility] Coding
--- NOTE | 2021-12-13 11:00 | Discharge Summary ---
Date of Service December 13, 2021 History of Present Illness The patient has not been doing well academically and lost hope/started missing more class. He reports return of his depression several weeks ago. To cope and sleep he has been drinking EToh--4-5 shots of whiskey a day for the past 2 weeks, reportedly at the encouragement of his friends. He has DFA and also disrupted sleep; he reports sleeping about 5 hrs/night. Appetite is OK but concentration toward classes is poor and he became increasingly hopefuless in the past 2 days, thinking about purchasing sodium nitrate again. A family friend talked him out of it. He was hospitalized medically in March 2020 after a suicide attempt with sodium nitrate and then transferred to the inpatient unit when he was medically cleared. He did not want medication at that time but is now more receptive of it. He did not follow up with therapy recommendations after hospital discharge and remains resistant to therapy. He states that he was not depressed last semester but struggled with being distracted and off task, particularly "addicted to social media" and constantly checking his phone. He reports some symptoms in elementary school and states they predated the onset of his depression. He is aware that Etoh use has had a negative impact on his mood but worries about changing his peer group. He doesn't feel they are problematic drinkers but they do watch alot of football and they have helped him feel more "[place]". He reports they use MJ regularly but he does not but worries about not drinking if with his peer group. Physical Exam Psychiatric See admission H&P and DOD assessment. Vital Signs (Past 24 Hours) Last Vital Signs Temp 36.5 C 12/13/21 06:51 Pulse 79 12/13/21 06:52 Resp 16 12/13/21 06:51 BP 100/67 12/13/21 06:52 Pulse Ox 98 12/11/21 19:39 Principal Diagnosis major depressive disorder Psychiatric Data See daily stay summary. In short, safety was maintained and the patient was cooperative with care. Medication changes included trial of Vistaril which was incredibly helpful for his sleep and they tolerated this well. A family session was held with a family friend/local support and safety plan was completed prior to discharge. Day of Discharge Assessment Today the patient submitted a 72 hr notice. He reports readiness for discharge in that his mood is much improved with sleep and not drinking ETOH. He hasn't e xperienced any suicidal thoughts for >24 hrs and was mainly wanting to get tested for ADHD which is an outpatient issue. He was directed to [facility] and [facility] resources which he declined. He is agreeing to therapy. There is no evidence of psychosis or shy interfering with his medical decision making and he verbalizes a plan to abstain from ETOh consumption as plans to study this weekend. There is no criteria for inpatient involuntary commitment. They note improvement in mood and deny thoughts to harm self or others. Thoughts remain organized and they are improved from admission. They agree to take mediations as prescribed and keep follow-up appointments. They are stable for discharge to outpatient level of care. Transition of Care Transition Of Care Record: was reviewed with the patient Advance Directives Advance Directives Information Provided: Yes Advance Directives: No Mental Health Advance Directive: No Advance Directives on File: No Living Will: No Power of Regional Ehs Manager: No Advance Directives Reason:: Declines as Mental Health Visit. Risk Factors Assessment Male: Yes : No Do You Have Access To A Gun?: No Health Problems: No Mental Health Diagnoses: Yes Previous Attempt: Yes Family History of Suicide: No Previous Psychiatric Hospitalization: Yes Protective Factors Assessment : No Employed: No Stable Relationships: Yes Tobacco Cessation at Discharge Tobacco Cessation Medication Prescribed at Discharge: Not Applicable/Non-Smoker Total Time Total Time Spent: Greater Than 30 Minutes Total Time Includes: Examination of the patient, Discharge Planning and Medication Reconciliation Discharge Data Lab Results 12/11/21 12/11/21 12/11/21 16:27 16:27 16:27 WBC 5.20 RBC 4.94 Hgb 15.2 Hct 44.9 MCV 90.9 MCH 30.8 MCHC 33.9 RDW Std Deviation 44.1 RDW Coeff of Emanuel 13.3 Plt Count 288 MPV 11.1 H Immature Gran % (Auto) 0.0 Neut % (Auto) 39.6 Lymph % (Auto) 48.1 [place] % (Auto) 9.8 Eos % (Auto) 2.3 Baso % (Auto) 0.2 Neut # (Auto) 2.06 Lymph # (Auto) 2.50 [place] # (Auto) 0.51 Eos # (Auto) 0.12 Baso # (Auto) 0.01 Immature Gran # (Auto) 0.00 Sodium 139 Potassium 4.1 Chloride 106 Carbon Dioxide 27 Anion Gap 6 BUN 15 Creatinine 0.70 Est Cr Clr Drug Dosing 104.0 Est GFR ( Amer) > 150.0 Est GFR (Non-Af Amer) 134.0 BUN/Creatinine Ratio 21.4 H Glucose 85 Calcium 9.3 Total Bilirubin 1.5 H AST 18 ALT 8 Alkaline Phosphatase 70 Total Protein 7.4 Albumin 4.7 Globulin 2.7 Albumin/Globulin Ratio 1.7 TSH 4.671 H Free T4 0.84 Urine Color Urine Appearance Urine pH Ur Specific [place] Urine Protein Urine Glucose (UA) Urine Ketones Urine Blood Urine Nitrite Urine Bilirubin Urine Urobilinogen Ur Leukocyte Esterase Urine WBC (Auto) Urine RBC (Auto) U Hyaline Cast (Auto) U Epithel Cells (Auto) Urine Bacteria (Auto) Salicylates Urine Opiates Screen Ur Methadone, Qual Acetaminophen Urine Barbiturates Ur Phencyclidine (PCP) U Amphetamin/Meth Scrn MDMA (Ecstasy) Screen U Benzodiazepines Scrn Ur Cocaine Metabolite U Marijuana (THC) Screen Ethyl Alcohol mg/dL SARS-CoV-2, RNA, NAAT 12/11/21 12/11/21 12/11/21 16:27 16:27 17:25 WBC RBC Hgb Hct MCV MCH MCHC RDW Std Deviation RDW Coeff of Emanuel Plt Count MPV Immature Gran % (Auto) Neut % (Auto) Lymph % (Auto) [place] % (Auto) Eos % (Auto) Baso % (Auto) Neut # (Auto) Lymph # (Auto) [place] # (Auto) Eos # (Auto) Baso # (Auto) Immature Gran # (Auto) Sodium Potassium Chloride Carbon Dioxide Anion Gap BUN Creatinine Est Cr Clr Drug Dosing Est GFR ( Amer) Est GFR (Non-Af Amer) BUN/Creatinine Ratio Glucose Calcium Total Bilirubin AST ALT Alkaline Phosphatase Total Protein Albumin Globulin Albumin/Globulin Ratio TSH Free T4 Urine Color Urine Appearance Urine pH Ur Specific [place] Urine Protein Urine Glucose (UA) Urine Ketones Urine Blood Urine Nitrite Urine Bilirubin Urine Urobilinogen Ur Leukocyte Esterase Urine WBC (Auto) Urine RBC (Auto) U Hyaline Cast (Auto) U Epithel Cells (Auto) Urine Bacteria (Auto) Salicylates < 3.0 L Urine Opiates Screen Neg Ur Methadone, Qual Neg Acetaminophen < 3 L Urine Barbiturates Neg Ur Phencyclidine (PCP) Neg U Amphetamin/Meth Scrn Neg MDMA (Ecstasy) Screen Neg U Benzodiazepines Scrn Neg Ur Cocaine Metabolite Neg U Marijuana (THC) Screen Neg Ethyl Alcohol mg/dL < 10.0 SARS-CoV-2, RNA, NAAT 12/11/21 12/11/21 17:25 18:16 WBC RBC Hgb Hct MCV MCH MCHC RDW Std Deviation RDW Coeff of Emanuel Plt Count MPV Immature Gran % (Auto) Neut % (Auto) Lymph % (Auto) [place] % (Auto) Eos % (Auto) Baso % (Auto) Neut # (Auto) Lymph # (Auto) [place] # (Auto) Eos # (Auto) Baso # (Auto) Immature Gran # (Auto) Sodium Potassium Chloride Carbon Dioxide Anion Gap BUN Creatinine Est Cr Clr Drug Dosing Est GFR ( Amer) Est GFR (Non-Af Amer) BUN/Creatinine Ratio Glucose Calcium Total Bilirubin AST ALT Alkaline Phosphatase Total Protein Albumin Globulin Albumin/Globulin Ratio TSH Free T4 Urine Color Yellow Urine Appearance Cloudy A Urine pH 8.5 H Ur Specific [place] 1.027 Urine Protein Trace H Urine Glucose (UA) Negative Urine Ketones Negative Urine Blood Negative Urine Nitrite Negative Urine Bilirubin Negative Urine Urobilinogen Negative Ur Leukocyte Esterase Negative Urine WBC (Auto) 1-5 Urine RBC (Auto) 0-4 U Hyaline Cast (Auto) 1-5 U Epithel Cells (Auto) 10-20 H Urine Bacteria (Auto) Negative Salicylates Urine Opiates Screen Ur Methadone, Qual Acetaminophen Urine Barbiturates Ur Phencyclidine (PCP) U Amphetamin/Meth Scrn MDMA (Ecstasy) Screen U Benzodiazepines Scrn Ur Cocaine Metabolite U Marijuana (THC) Screen Ethyl Alcohol mg/dL SARS-CoV-2, RNA, NAAT NEGATIVE Hospital Course (1) Depression: (2) Alcohol abuse: (3) TSH elevation: The patient was admitted to the [facility] ([facility]) on q15 min checks (behavioral with suicide precautions) for safety. The patient will participate in group, recreational, and milieu therapies and will be offered additional individual and family sessions as clinically appropriate. He is not interested in an antidepressant at this time as focussed on possible dx of ADHD "explaining everything". He does note benefit from Vistaril yesterday pm and would like to continue it scheduled to reset his sleep. He feels not drinking will also help his mood to improve. Discussed that ADHD dx best made when mood more stable and with psychological testing and that we can provide referrals but cannot be done while inpatient. The patient's AUDIT score suggests problematic drinking ([place] WHO). Brief intervention was offered and accepted. Intervention was greater than 5 min in length and included assessing readiness to quit, advice on how to reduce or abstain from alcohol, and to set a specific goal for this hospitalization. rolled materials worker will also assist in anticipating barriers to sobriety and in problem-solving for solutions to those problems while arranging for referral to appropriate treatment. The patient is in contemplation stage with regards to transtheoretical model of change. The patient is advised to decrease alcohol consumption due to depressant effects and risk of interaction with prescription medications. The patient feels it's related to his mood rather than separate substance use disorder but will be provided with recovery materials to continue to educate self on how to cope with their condition without drinking. A thyroid panel will need repeated in 6 weeks. Mental Health & Subst Abuse Tx Therapist Name of Therapist: Kerline Therapist's Therapy Appointment Comment: [address] [place] [address], [address], [place], [place] Technical Operations Specialist Name of Technical Operations Specialist: None Post Discharge Appointments Primary Care Physician Name Of Family Doctor: [facility] Primary Care Date of Appointment with PCP: 12/16/21 Time of Appointment with PCP: 11am Provider Appointment Comment: telehealth- office will call Smoking Cessation Counseling Tobacco Cessation Medication Prescribed at Discharge: Not Applicable/Non-Smoker Contact Information Discharge Discharge Address: [address] [place] [address]. [place], [place] Discharge Plan Discharge Items Patient Disposition: Home - Self-Care Reason For Visit: MDD Discharge Diagnosis: major depressive disorder Activity: Resume your previous activity Non-emergency contact: Primary Care Provider and Therapist Call non-emergency contact if: you have any medication questions and your symptoms worsen Follow-up/Referrals: [facility] [Primary Care Provider] - Diet: Regular Addtl Attending Provider Instructions: SPECIAL CARE INSTRUCTIONS: 1. Follow through with your scheduled aftercare appointments. If unable to keep an appointment, please call to reschedule. 2. Take your medication only as prescribed. Medication should not be changed or stopped without the approval of your doctor. In the event of worsening symptoms or concerns about side effects, contact your doctor immediately. 3. Utilize new healthy coping skills, anger management skills, and stress management skills learned during your hospitalization. Journal feelings and process them with a support person. Identify stressors or situations that may result in relapse, deterioration or inappropriate behaviors and develop a plan to deal with those issues. 4. If your coping skills are ineffective and you are in crisis, contact your o utpatient providers for direction. If unable to reach your providers, please call the [facility] CRISIS LINE AT , go to the [facility] walk-in center at [address], [address], [place], or go to the closest Emergency Room. 5. Avoid alcohol and un-prescribed drugs. 6. You have been provided with the Mental Health Advance Directives Pamphlet for your review. 7. Your condition is stable for discharge to outpatient level of care, but recovery is an ongoing process. Ifthoughts to harm yourself or others return, follow the safety plan developed during your stay. Planning for a safe return home includes securing weapons. Our treatment team recommends weaponsbe removed from the home until your outpatient provider reassesses your progress. In rare cases where the items themselvescannot be removed, guns and ammunitionshould be secured separatelyand keys stored by a reliable personoutside of the home. If you were admitted on an involuntary commitment, the police or other legal authorities may be involved in this process. AFTERCARE APPOINTMENTS: * Please call your insurance company prior to your scheduled appointment to confirm your aftercare providers are covered. Take your insurance information to your appointments. WHO TO CALL AND WHEN: Medical Emergencies: For questions or emergencies related to your hospital stay, please contact the Inpatient Behavioral Health Unit at [phone]. A resin coater is on-call 15/06 for the Behavioral Health Unit for emergencies At any time you feel your situation is an emergency, you may also call 911 immediately. Pending Studies at Discharge: No Stand-Alone Forms: My [employer], Smoking Cessation Medications and DC Order Prescriptions: New hydroxyzine HCl 25 mg Tablet 50 mg PO HS PRN (Reason: sleep) 15 Days Qty: 30 RF: 1 No Action No Known Home Medications RF: 0 Discharge Orders: Discharge Order (Routine); Ordered 12/13/21 Ordered By: Kamala Mcnally Admission Data Admit Date/Time: 12/11/21 19:33 Attending Provider: Kamala Mcnally Admit Provider: Kamala Mcnally Primary Care Provider: [facility] Coding Level of Care Code 93302 D/C day mgmt > 30 min Diagnoses Depression F32.A Depression Type: unspecified Alcohol abuse F10.10 TSH elevation R79.89
[2021-12-13 11:25] VITALS: BP 100/62; PULSE 68
== END 2021-12-13 12:05 | disposition home or self-care (01) | DRG 881 ==
LOC: ED 15:48 → 3S 19:39
DX: R94.6 Abnormal results of thyroid function studies; F32.9 Major depressive disorder, single episode, unspecified; F10.10 Alcohol abuse, uncomplicated